=== PATIENT | female | born 1935 | race Caucasian/White ===

== ENCOUNTER 2018-08-14 23:23 | Emergency (ER) | payer OTHER ==
--- NOTE | 2018-08-15 01:12 | PDOC ---
History of Present Illness - General Chief Complaint: Constipation Stated Complaint: STOMACH PAIN Time Seen by Provider: 08/15/18 01:05 - History of Present Illness Initial Comments: 08/15/18 01:48 The patient is an 82 year old female with a history of HTN, HLD, Uterine CA, Non -hodkins Lymphoma who presents for evaluation of abdominal pain, nausea, and vomiting. The patient is accompanied by family who assists in providing the history. They report sharp epigastric abdominal pain with associated nausea and 1 episode of vomiting prompting the patient's presentation for further evaluation. She notes that her symptoms have mostly resolved on presentation to the ED without intervention. She denies similar symptoms in the past and otherwise denies fevers, chills, SOB, chest pain, or changes with urination or bowel movements. Past History - Past Medical History Allergies/Adverse Reactions: Allergies Allergy/AdvReac Type Severity Reaction Status Date / Time No Known Allergies Allergy Verified 08/15/18 01:19 Home Medications: Ambulatory Orders Metoprolol Succinate [Toprol XL -] 100 mg PO DAILY #0 tab.sr.24h 03/03/13 Pravastatin Sodium [Pravachol -] 10 mg PO HS #0 tablet 03/03/13 Levothyroxine [Synthroid -] 75 mcg PO DAILY 09/25/14 Gabapentin 600 mg PO BID 11/18/17 Fesoterodine Fumarate [Toviaz] 8 mg PO DAILY 08/15/18 Anemia: No Asthma: No Cancer: Yes (H/O UTERINE.non hodgkins lymphoma) Cardiac Disorders: No CVA: No COPD: No CHF: No DVT: No Dementia: No Diabetes: No GI Disorders: Yes (hemorrhoids) Disorders: Yes (BLADDER PROBLEM.) HTN: Yes Hypercholesterolemia: Yes Liver Disease: No Seizures: No Thyroid Disease: Yes (HYPO.) - Surgical History Abdominal Surgery: Yes Appendectomy: No Cardiac Surgery: No Cholecystectomy: No Lung Surgery: No Neurologic Surgery: No Orthopedic Surgery: Yes (large cyst removed from right thigh) - Suicide/Smoking/Psychosocial Hx Smoking Status: Yes Smoking History: Never smoked Have you smoked in the past 12 months: No Number of Cigarettes Smoked Daily: 0 If you are a former smoker, when did you quit?: 2000 Cigars Per Day: 0 'Breaking Loose' booklet given: 10/30/12 Hx Alcohol Use: No Drug/Substance Use Hx: No Substance Use Type: None Hx Substance Use Treatment: No Review of Systems - Review of Systems Comments:: 08/15/18 01:59 Constitutional: No fevers, chills, fatigue, malaise HEENT: No Rhinorrhea, nasal congestion, visual changes Cardiovascular: No chest pain, syncope, palpitations, lightheadedness Respiratory: No Cough, SOB, Hemoptysis, Gastrointestinal: Abdominal pain, Nausea, Vomiting, No Diarrhea, Melena Genitourinary: No Dysuria, Frequency, Urgency, Hesitancy, Hematuria, Flank pain Musculoskeletal: No Myalgia, arthralgia Skin: No rashes, itching, bruising, pallor Neurologic: No Headache, Dizziness, Numbness, Weakness, or Tingling Psychiatric: No Hallucinations. No SI or HI *Physical Exam - Physical Exam Comments: 08/15/18 01:59 General Appearance: Nourished. No Apparent Distress HEENT: No Pharyngeal Erythema, Tonsillar Exudate, Tonsillar Erythema Neck: No Cervical Lymphadenopathy Respiratory/Chest: Lungs Clear, Normal Breath Sounds. No Crackles, Rales, Rhonchi, Wheezing Cardiovascular: Regular Rhythm, Regular Rate. No Murmur, Gallops, Rubs Gastrointestinal/Abdominal: Normal Bowel Sounds, Soft. Mild Epigastric discomfort with palpation. No Guarding, Rebound, Musculoskeletal: No CVA Tenderness Extremity: Normal Capillary Refill Integumentary: Normal Color, Dry, Warm Neurologic: Fully Oriented, Alert, Normal Mood/Affect, Normal Response, ED Treatment Course - LABORATORY CBC & Chemistry Diagram: 08/15/18 01:50 08/15/18 01:50 Medical Decision Making - Medical Decision Making 08/15/18 02:06 The patient is an 82 year old female with a history of HTN, HLD, Uterine CA, Non -hodkins Lymphoma who presents for evaluation of abdominal pain, nausea, and vomiting. Differential includes but is not limited to: ACS, Gastritis, Pancreatitis, Infectious, Metabolic Derangement. Given the patient's history and physical exam, we will obtain a cbc, cmp, troponin, lipase, ekg, chest plain film to evaluate further. We will treat with iv fluids, zofran, pepcid and continue to monitor and reassess while here in the ED. 08/15/18 04:43 CBC, cmp, troponin, lipase are unremarkable. Chest plain film is unremarkable. The patient was reassessed and reports improvement in their symptoms. We are comfortable discharging the patient home in stable condition. Patient and family made aware of impression and plan, return precautions discussed including but not limited to worsening pain or symptoms, fevers, or signs of infection, chest pain, respiratory distress, inability to tolerate oral intake, dehydration, syncope, or neurologic changes. The patient is to follow up with PMD as recommended within 1 week, follow up information provided and the patient will call for an appointment. The patient is to take medications as instructed for duration of time and continue with supportive care, avoid triggers and precipitants. Patient is safe for outpatient follow-up. *DC/Admit/Observation/Transfer Diagnosis at time of Disposition: Abdominal pain Qualifiers: Abdominal location: unspecified location Qualified Code(s): R10.9 - Unspecified abdominal pain - Discharge Dispostion Disposition: HOME Condition at time of disposition: Stable - Referrals Referrals: Ruth Philip MD [Primary Care Provider] - - Patient Instructions Printed Discharge Instructions: DI for Abdominal Pain-Adult Additional Instructions: 1) Please follow-up with your primary care doctor in the next 2-3 days. Please call tomorrow to schedule a follow up appointment. If you cannot follow up with your doctor within 1 week please return to the Emergency Department for any urgent issues. 2) Your laboratory / imaging results were normal here in the ER. 3) If you have any worsening of symptoms or any other concerns please return to the ER immediately. Return if worsening symptoms including fevers, headache, vomiting, visual or hearing disturbances, abdominal pain, chest pain, shortness of breath, syncope, dehydration, inability to take things by mouth/vomiting, altered mental status, or worsening concerning symptoms. 4) Please continue taking your home medications as directed. - Post Discharge Activity
[2018-08-15 01:19] VITALS: BP 130/52; PULSE 61; TEMP 98.4; BMI 34.3
[2018-08-15] MEDS ORDERED: SODIUM CHLORIDE 1,000 ML IV STA (01:34)
[2018-08-15] MEDS ORDERED: ONDANSETRON 4 MG/2 ML VIAL IVPUSH ONE (01:34)
[2018-08-15] MEDS ORDERED: FAMOTIDINE 20 MG/50 ML IVPB 20 MG/50 ML MG IVPB ONE ×2 (01:34→02:09)
--- NOTE | 2018-08-15 02:04 | PDOC ---
Attending Attestation - Resident Resident Name: GerShashank - ED Attending Attestation I have performed the following: I have examined & evaluated the patient, The case was reviewed & discussed with the resident, I agree w/resident's findings & plan - HPI HPI: 08/15/18 04:52 82-year-old female with an episode of sharp abdominal pain followed and relieved by an episode of vomiting. - Physicial Exam PE: 08/15/18 04:53 Agree with resident's exam - Medical Decision Making 08/15/18 04:53 82-year-old female with an episode of abdominal pain relieved by vomiting Labs and chest x-ray were not concerning EKG shows a normal sinus rhythm On reevaluation at 4:50 AM patient is awake alert in no distress and states she feels fine and is ready to go home She is accompanied by family
[2018-08-15] MEDS ORDERED: ONDANSETRON 4 MG/2 ML VIAL ONE (02:09)
[2018-08-15 02:21] LABS: BASO % 0.3 % (0-2.0); EOS % 1.2 % (0-4.5); HEMATOCRIT 38.8 % (32.4-45.2); HEMOGLOBIN 12.5 GM/dL (10.7-15.3); LYMPH % 13.7 % (8-40); MCH 27.5 pg (25.7-33.7); MCHC 32.3 g/dl (32.0-36.0); MEAN CELL VOLUME 85.1 fl (80-96); MEAN PLT VOLUME 7.4 fl (7.5-11.1); MONO % 8.1 % (3.8-10.2); NEUT % 76.7 % (42.8-82.8); PLATELET COUNT 173 K/MM3 (134-434); RBC 4.56 M/mm3 (3.60-5.2); RDW 17.3 % (11.6-15.6); WHITE BLOOD COUNT 5.8 K/mm3 (4.0-10.0)
[2018-08-15 02:33] LABS: ALBUMIN 3.6 g/dl (3.4-5.0); ALK PHOS 79 U/L (45-117); ANION GAP 7 MMOL/L (8-16); BILIRUBIN,TOTAL 0.8 mg/dL (0.2-1); BLOOD UREA NITROGEN 31 mg/dL (7-18); CALCIUM 9.6 mg/dL (8.5-10.1); CHLORIDE 105 mmol/L (98-107); CO2 26 mmol/L (21-32); CREATININE 1.5 mg/dL (0.55-1.3); GLUCOSE,RANDOM 107 mg/dL (74-106); LIPASE 226 U/L (73-393); POTASSIUM 4.4 mmol/L (3.5-5.1); SGOT/AST 29 U/L (15-37); SGPT/ALT 26 U/L (13-61); SODIUM 139 mmol/L (136-145); TOT PROT 6.7 g/dl (6.4-8.2)
--- NOTE | 2018-08-15 17:15 | EKG ---
Test Reason : Blood Pressure : / mmHG Vent. Rate : 061 BPM Atrial Rate : 061 BPM P-R Int : 212 ms QRS Dur : 124 ms QT Int : 460 ms P-R-T Axes : 051 -59 -15 degrees QTc Int : 463 ms SINUS RHYTHM WITH SINUS ARRHYTHMIA WITH 1ST DEGREE A-V BLOCK LEFT AXIS DEVIATION RIGHT BUNDLE BRANCH BLOCK SEPTAL INFARCT , AGE UNDETERMINED ABNORMAL ECG WHEN COMPARED WITH ECG OF 18-NOV-2017 12:34, SINUS RHYTHM HAS REPLACED ATRIAL FIBRILLATION QT HAS LENGTHENED Confirmed by CANDICE MARTINEZ MD ([id number]) on 08/15/2018 5:15:18 PM Referred By: Confirmed By:CANDICE MARTINEZ MD
== END 2018-08-15 05:06 | disposition home or self-care (01) ==
LOC: JER 23:23
PROC: 3E033GC Introduction of Other Therapeutic Substance into Peripheral Vein, Percutaneous Approach (ICD-10-PCS; principal; 2018-08-14)
PROC: 3E033GC Introduction of Other Therapeutic Substance into Peripheral Vein, Percutaneous Approach (ICD-10-PCS; 2018-08-14)
DX: R10.84 Generalized abdominal pain (principal); E03.9 Hypothyroidism, unspecified; Z85.42 Personal history of malignant neoplasm of other parts of uterus; Z85.72 Personal history of non-Hodgkin lymphomas
CPT/HCPCS: 36415; 71045-TC-FY; 80053; 82550; 83690; 84484; 85025; 93005; 93010; 99283-25; J7030

== ENCOUNTER 2019-03-03 12:30 | Inpatient (IN) | payer OTHER ==
[2019-03-03 15:08] LABS: BASO % 0.5 % (0-2.0); EOS % 1.5 % (0-4.5); HEMATOCRIT 37.6 % (32.4-45.2); HEMOGLOBIN 12.2 GM/dL (10.7-15.3); LYMPH % 22.8 % (8-40); MCHC 32.5 g/dl (32.0-36.0); MEAN CELL VOLUME 86.1 fl (80-96); MEAN PLT VOLUME 7.2 fl (7.5-11.1); MONO % 9.9 % (3.8-10.2); NEUT % 65.3 % (42.8-82.8); PLATELET COUNT 173 K/MM3 (134-434); RBC 4.37 M/mm3 (3.60-5.2); RDW 16.5 % (11.6-15.6); WHITE BLOOD COUNT 4.3 K/mm3 (4.0-10.0)
[2019-03-03 15:19] LABS: INR 0.88 (0.83-1.09); PROTHROMBIN TIME (PATIENT) 10.4 SEC (9.7-13.0)
[2019-03-03 16:17] LABS: ALBUMIN 3.4 g/dl (3.4-5.0); ALK PHOS 69 U/L (45-117); ANION GAP 7 MMOL/L (8-16); BILIRUBIN,TOTAL 0.5 mg/dL (0.2-1); BLOOD UREA NITROGEN 44.4 mg/dL (7-18); CALCIUM 9.4 mg/dL (8.5-10.1); CHLORIDE 108 mmol/L (98-107); CO2 23 mmol/L (21-32); CREATININE 1.6 mg/dL (0.55-1.3); GLUCOSE,RANDOM 83 mg/dL (74-106); N-TERMINAL BNP 2269.7 pg/ml (5-450); POTASSIUM 5.6 mmol/L (3.5-5.1); SGOT/AST 28 U/L (15-37); SGPT/ALT 31 U/L (13-61); SODIUM 138 mmol/L (136-145); TOT PROT 6.5 g/dl (6.4-8.2)
--- NOTE | 2019-03-03 16:31 | PDOC ---
History of Present Illness - General Chief Complaint: Lightheaded Stated Complaint: LIGHTHEADNESS Time Seen by Provider: 03/03/19 13:25 History Source: Patient Exam Limitations: No Limitations - History of Present Illness Initial Comments: Pt is an 83 yo F, with PMH of HTN, HLD, chronic RLE lymphedema, [place] lymphoma (x2 , last 2000), and uterine CA (remission 2008), who is presenting with complaints of "feeling like passing out" and exertional SOB which has worsened over the past few days. Pt has had these symptoms "for a couple of months," and had an cardiac echo done by Dr. Aguilar last week "which was normal," and is scheduled for a cardiac stress next week. Pt states her symptoms over the past 3 days, feeling throughout the day "like it is going black in front of me". Pt does not endorse association with position changes, and has been tolerating PO intake as usual. 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 Pt denies any fevers/chills, headache, vision changes, syncope or seizures, chest pain, orthopnea/PND, palpitations, nausea/vomiting, abdominal pain, urinary symptoms, diarrhea/constipation, or leg swelling from baseline. Allergies: NKDA PCP: Dr. Ruth Philip Cards: Dr. Aguilar Onc: Dr. Schmidt Social: Pt denies any cigarette, alcohol, or drug use. Pt denies any recent travel or sick contacts. Surgical: no relevant history. Family: no relevant history. 03/03/19 18:42 Past History - Travel Traveled outside of the country in the last 30 days: No Close contact w/someone who was outside of country & ill: No - Past Medical History Allergies/Adverse Reactions: Allergies Allergy/AdvReac Type Severity Reaction Status Date / Time No Known Allergies Allergy Verified 03/03/19 12:47 Home Medications: Ambulatory Orders Metoprolol Succinate [Toprol XL -] 100 mg PO DAILY #0 tab.sr.24h 03/03/13 Pravastatin Sodium [Pravachol -] 10 mg PO HS #0 tablet 03/03/13 Levothyroxine [Synthroid -] 75 mcg PO DAILY 09/25/14 Gabapentin 600 mg PO BID 11/18/17 Fesoterodine Fumarate [Toviaz] 8 mg PO DAILY 08/15/18 Anemia: No Asthma: No Cancer: Yes (H/O UTERINE.non hodgkins lymphoma) Cardiac Disorders: No CVA: No COPD: No CHF: No DVT: No Dementia: No Diabetes: No GI Disorders: Yes (hemorrhoids) Disorders: Yes (BLADDER PROBLEM.) HTN: Yes Hypercholesterolemia: Yes Liver Disease: No Seizures: No Thyroid Disease: Yes (HYPO.) - Surgical History Abdominal Surgery: Yes Appendectomy: No Cardiac Surgery: No Cholecystectomy: No Lung Surgery: No Neurologic Surgery: No Orthopedic Surgery: Yes (large cyst removed from right thigh) - Psycho Social/Smoking Cessation Hx Smoking Status: Yes Smoking History: Never smoked Have you smoked in the past 12 months: No Number of Cigarettes Smoked Daily: 0 If you are a former smoker, when did you quit?: 2000 Cigars Per Day: 0 'Breaking Loose' booklet given: 10/30/12 Hx Alcohol Use: No Drug/Substance Use Hx: No Substance Use Type: None Hx Substance Use Treatment: No Cardiac Specific PMH - Complaint Specific PMHX Abdominal Aortic Aneurysm: No Angina: No Cardiac Arrhythmia: No Cardiac Stent: No GERD: No Myocardial Infarction: No Pacemaker: No Pulmonary Embolus: No Valvular Heart Disease: No Peripheral Vascular Disease: No Review of Systems - Review of Systems Able to Perform ROS?: Yes Is the patient limited Maltese proficient: No Constitutional: Yes: Weight Stable. No: Chills, Diaphoresis, Fever, Loss of Appetite, Malaise, Weakness HEENTM: No: Recent change in vision, Nose Congestion, Throat Pain, Throat Swelling, Difficulty Swallowing Respiratory: Yes: Shortness of Breath, SOB with Exertion. No: Cough, Orthopnea , SOB at Rest, Wheezing, Productive cough, Hemoptysis Cardiac (ROS): Yes: Edema (chronic, RLE lymphedema), Lightheadedness. No: Chest Pain, Irregular Heart Rate, Palpitations, Syncope, Chest Tightness ABD/GI: No: Constipated, Diarrhea, Nausea, Poor Appetite, Poor Fluid Intake, Vomiting : No: Burning, Dysuria, Frequency, Flank Pain, Pain, Urgency Musculoskeletal: No: Back Pain, Joint Swelling, Muscle Weakness Integumentary: No: Rash Neurological: Yes: Unsteady Gait. No: Headache, Numbness, Weakness, Ataxia, Dizziness Psychiatric: No: Sleep Pattern Change, Change in Appetite Endocrine: No: Increased Urine, Change in Weight Hematologic/Lymphatic: No: Anemia, Blood Clots, Easy Bleeding, Easy Bruising All Other Systems: Reviewed and Negative *Physical Exam - Vital Signs Last Vital Signs Temp Pulse Resp BP Pulse Ox 97.8 F 50 L 18 123/45 L 97 03/03/19 12:43 03/03/19 12:43 03/03/19 12:43 03/03/19 12:43 03/03/19 12:43 - Physical Exam Comments: HR 50, BP 123/45 (equal in both arms) pt afebrile. Pt in NAD, obese body habitus. Pt alert and oriented x3. interdisciplinary professor generally intact, muscular strength and sensation intact. Cerebellar exam WNL. No midline spinal tenderness, step-offs, or crepitus. Head normocephalic, atraumatic. Eyes PERRLA, EOMI. Oropharynx without erythema or exudates, no LAD b/l. No nasal congestion. Hearing intact. Clear heart sounds, S1/S2, no JVD. +systolic murmur +RLE pitting edema (pt states chronic) Clear lung sounds, no respiratory distress, wheezes, crackles, or accessory muscle use. No abdominal or CVA tenderness to palpation, no rebound, no guarding. Abdomen soft, non-distended, and with normoactive bowel sounds. Skin without jaundice or rash. 03/03/19 18:55 ED Treatment Course - LABORATORY CBC & Chemistry Diagram: 03/03/19 14:12 03/03/19 14:12 - ADDITIONAL ORDERS Additional order review: Laboratory Results 03/03/19 03/03/19 14:12 14:12 PT with INR 10.40 INR 0.88 Sodium 138 Potassium 5.6 H Chloride 108 H Carbon Dioxide 23 Anion Gap 7 L BUN 44.4 H Creatinine 1.6 H Est GFR (CKD-EPI)AfAm 33.70 Est GFR (CKD-EPI)NonAf 29.08 Random Glucose 83 Calcium 9.4 Total Bilirubin 0.5 AST 28 ALT 31 Alkaline Phosphatase 69 Creatine Kinase 114 Troponin I < 0.02 B-Natriuretic Peptide 2269.7 H Total Protein 6.5 Albumin 3.4 03/03/19 14:12 RBC 4.37 MCV 86.1 MCHC 32.5 RDW 16.5 H MPV 7.2 L Neutrophils % 65.3 Lymphocytes % 22.8 D Monocytes % 9.9 Eosinophils % 1.5 Basophils % 0.5 - RADIOLOGY Radiology Studies Ordered: Category Date Time Status HEAD CT WITHOUT CONTRAST [CT] Stat CT Scan 03/03/19 13:27 Completed CHEST PA & LAT [RAD] Stat Radiology 03/03/19 14:07 Completed Medical Decision Making - Medical Decision Making Pt was seen at bedside, also will be seen by attending Dr. Canela. Pt presenting with pre-syncope, exertional SOB. Pt ambulates with a cane and feels throughout the day that she may pass out or fall over. Will evaluate for CVA vs ACS vs CHF vs electrolyte abnormality. Pt does not appear to be clinically dehydration, and concern for CHF. Will continue to reassess pt and monitor for symptomatic improvement. ECG: Sinus bradycardia with 1st degree AV block, LAD, RBBB (Hr 53, KS 234, QRS 136, QTc 433). No TWIs or significant ST segment changes. No significant changes from prior ECG (prior: 08/15/2018). 03/03/19 18:56 CBC and CMP within pts baseline Trop <.02 with no new EKG changes BNP within prior visits Chest x-ray with no acute pathology or congestion CT head without acute pathology. Pt admitted to Dr. Chairez (admits for Dr. Philip) for telemetry monitoring and further cardiac work-up, as pre-syncope could be related to arrhythmia or CHF. Pt not stable on her feet, and is at risk for falls considering use of cane and pre-syncope. Not safe for d/c to home. 03/03/19 18:59 Discharge - Discharge Information Problems reviewed: Yes Clinical Impression/Diagnosis: Pre-syncope, SOB (shortness of breath) on exertion Condition: Stable - Admission Yes - Follow up/Referral Referrals: Ruth Philip MD [Primary Care Provider] - - Patient Discharge Instructions - Post Discharge Activity Work/Back to School Note: Parent(s) Back to Work Note
[2019-03-03 17:22] LABS: PLATELET ESTIMATE ADEQUATE
--- NOTE | 2019-03-03 18:30 | PDOC ---
Documentation entered by Syed Haro SCRIBE, acting as scribe for Vincenzo Canela MD. Vincenzo Canela MD: This documentation has been prepared by the Estrellita arnold Nirvannie, SCRIBE, under my direction and personally reviewed by me in its entirety. I confirm that the documentation accurately reflects all work, treatment, procedures, and medical decision making performed by me. Attending Attestation - Resident Resident Name: AlysonCristina - ED Attending Attestation I have performed the following: I have examined & evaluated the patient, The case was reviewed & discussed with the resident, I agree w/resident's findings & plan, Exceptions are as noted - HPI HPI: 03/03/19 16:09 The patient is an 83 year old female, with a significant past medical history of hypertension, hyperlipidemia, hypothyroidism, non-Hodgkin's lymphoma (s/p chemotherapy and surgery) and uterine cancer in remission, who presents to the emergency department s/p 1 week of multiple episodes of presyncope. Pt reports any time that she tries to exert herself, she becomes lightheaded and feels as though she will pass out. She has never had similar sxs before. As per patient, she was at work in the [employer] shop at which time she began to feel more lightheaded and almost fell prompting ED visit. Of note, patient is currently being worked up by her pheresis nurse, Dr. Aguilar for shortness of breath and has a stress test scheduled for next week. 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 She denies recent chest pain, syncope, or palpitations. She denies recent fevers , chills, headache or dizziness. She denies recent nausea, vomiting, diarrhea or constipation. Denies focal weakness/numbness. She denies recent dysuria, frequency, urgency or hematuria. Allergies: NKA Past surgical history: Hysterectomy. Social history: Former smoker (Quit 1999). Denies EtOH use and recreational drug use. Familial history: Offspring- PE. Primary Care Physician: Dr. Ruth Philip - Physicial Exam PE: 03/03/19 18:23 GENERAL: Awake, alert, and fully oriented, in no acute distress EYES: PERRLA, EOMI, sclera anicteric, conjunctiva clear ENT: Oropharynx clear without exudates. Moist mucosa NECK: Normal ROM, supple, no lymphadenopathy, JVD, or masses LUNGS: Breath sounds equal, clear to auscultation bilaterally. No wheezes, and no crackles HEART: Regular rate and rhythm, normal S1 and S2, no murmurs, rubs or gallops ABDOMEN: Soft, nontender, normoactive bowel sounds. No guarding, no rebound. No masses EXTREMITIES: Normal range of motion, no edema. No clubbing or cyanosis. No cords, erythema, or tenderness NEUROLOGICAL: Normal speech, cranial nerves intact, 5/5 strength in all 4 extremities, normal sensation to light touch in all 4 extremities, normal cerebellar exam, normal gait, normal reflexes and tone SKIN: Warm, Dry, normal turgor, no rashes or lesions noted. - Medical Decision Making 03/03/19 18:27 83-year-old female Presents emergency department with lightheadedness and presyncope with exertion for 1 week as well as 2 months of progressive dyspnea on exertion. Labs consistent with mild hyperkalemia to 5.6, elevated creatinine 1.6, however last creatinine in our system was 1.5. She also has an elevated BNP consistent with possible heart failure. In light of clinical history and labs, plan to admit the patient to telemetry observation for possible stress test and further management. Heart Score/ECG Review #1 03/03/19 18:23 Twelve-lead EKG was performed and reviewed by me. Sinus bradycardia, rate 53. Left axis deviation. Right bundle branch block. No ST elevations. Isolated T wave inversion in lead III.
[2019-03-03] MEDS ORDERED: ATORVASTATIN CA 10 MG TABLET (FP) PO SCH (22:00)
[2019-03-03] MEDS ORDERED: ATORVASTATIN CA 10 MG TABLET (FP) ONE (22:53)
[2019-03-03] MEDS ORDERED: GABAPENTIN 100 MG CAPSULE (FP) ONE (22:53)
[2019-03-03] MEDS: GABAPENTIN 300 MG CAPSULE (FP) PO SCH (23:06)
[2019-03-04] MEDS ORDERED: LEVOTHYROXINE NA 75 MCG TABLET (FP) PO SCH (07:00)
[2019-03-04 07:11] LABS: BASO % 0.3 % (0-2.0); EOS % 2.2 % (0-4.5); HEMATOCRIT 35.1 % (32.4-45.2); HEMOGLOBIN 11.6 GM/dL (10.7-15.3); LYMPH % 28.3 % (8-40); MCH 28.5 pg (25.7-33.7); MCHC 33.1 g/dl (32.0-36.0); MEAN CELL VOLUME 86.1 fl (80-96); MONO % 10.7 % (3.8-10.2); NEUT % 58.5 % (42.8-82.8); PLATELET COUNT 154 K/MM3 (134-434); RBC 4.07 M/mm3 (3.60-5.2); RDW 16.5 % (11.6-15.6); WHITE BLOOD COUNT 3.5 K/mm3 (4.0-10.0)
[2019-03-04 07:41] LABS: ALBUMIN 3.3 g/dl (3.4-5.0); BILIRUBIN,TOTAL 0.5 mg/dL (0.2-1); BLOOD UREA NITROGEN 37.4 mg/dL (7-18); CALCIUM 9.1 mg/dL (8.5-10.1); CREATININE 1.4 mg/dL (0.55-1.3); POTASSIUM 4.3 mmol/L (3.5-5.1); TOT PROT 5.8 g/dl (6.4-8.2)
[2019-03-04 09:33] VITALS: BMI 34.0
[2019-03-04 09:45] LABS: EPI CELLS 0.9 /HPF (0-5/HPF); HYALINE CASTS 1 /lpf (0-8); PH,URINE 5.5 (5.0-8.0); URINE APPEARANCE CLEAR; URINE BACTERIA 915.8 /hpf (NEGATIVE); URINE BILIRUBIN NEGATIVE (NEGATIVE); URINE COLOR YELLOW; URINE GLUCOSE (UA) NEGATIVE (NEGATIVE); URINE KETONE NEGATIVE (NEGATIVE); URINE LEUK ESTERASE TRACE (NEGATIVE); URINE NITRITE POSITIVE (NEGATIVE); URINE PROTEIN NEGATIVE (NEGATIVE); URINE RBC 1 /hpf (0-4); URINE UROBILINOGEN 0.2 mg/dL (0.2-1.0); URINE WBC 10 /hpf (0-5)
[2019-03-04] MEDS ORDERED: TOLTERODINE TARTRATE LA 4 MG CAP.SR.24H (FP) PO SCH (10:00)
[2019-03-04] MEDS ORDERED: hydrALAZINE HCL 25 MG TABLET (FP) PO SCH (10:00)
[2019-03-04] MEDS ORDERED: CHOLECALCIFEROL (VIT D3) 1,000 UNIT (25 MCG) TABLET PO SCH (10:00)
[2019-03-04] MEDS ORDERED: PATIENT'S OWN MEDICATION (NON-FORMULARY) (Nebivolol Hcl [Bystolic] 20 MG) PO SCH (10:00)
[2019-03-04] MEDS ORDERED: HEPARIN NA (PORCINE) 5,000 UNITS/ML 1ML VIAL SQ SCH (10:00)
[2019-03-04] MEDS ORDERED: amLODIPine BESYLATE 5 MG TABLET (FP) PO SCH (10:00)
[2019-03-04] MEDS ORDERED: VALSARTAN 160 MG TABLET (UD) PO SCH (10:00)
--- NOTE | 2019-03-04 10:01 | HP ---
Admitting History and Physical - Primary Care Physician PCP: Nathalia Chairez S - Admission Chief Complaint: dizziness lightheadedness History of Present Illness: The patient is an 83 year old female, with a significant past medical history of hypertension, hyperlipidemia, hypothyroidism, non-Hodgkin's lymphoma (s/p chemotherapy and surgery) and uterine cancer in remission, who presents to the emergency department s/p 1 week of multiple episodes of presyncope. Pt reports any time that she tries to exert herself, she becomes lightheaded and feels as though she will pass out. She has never had similar sxs before. As per patient, she was at work in the [employer] at which time she began to feel more lightheaded and almost fell prompting ED visit. 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 Aguilar for shortness of breath and has a stress test scheduled for next week. 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 She denies recent chest pain, syncope, or palpitations. She denies recent fevers , chills, headache or dizziness. She denies recent nausea, vomiting, diarrhea or constipation. Denies focal weakness/numbness. She denies recent dysuria, frequency, urgency or hematuria. - Past Medical History Cardiovascular: Yes: HTN, Pulmonary Hypertension Renal/: Yes: Renal Inusuff ...: No Heme/Onc: Yes: Other (Non Hodgkin's lymphoma, Uterine Cancer) Infectious Disease: Yes: Other (erythema right leg with leukopenia) Musculoskeletal: Yes: Osteoarthritis Endocrine: Yes: Hypothyroidism - Smoking History Smoking history: Never smoked Have you smoked in the past 12 months: No Aproximately how many cigarettes per day: 0 If you are a former smoker, when did you quit?: 1999 - Alcohol/Substance Use Hx Alcohol Use: No History of Substance Use: reports: None - Social History Usual Living Arrangement: Yes: Alone Do you think of yourself as: Straight/Heterosexual ADL: Independent History of Recent Travel: No Home Medications - Allergies Allergies/Adverse Reactions: Allergies Allergy/AdvReac Type Severity Reaction Status Date / Time No Known Allergies Allergy Verified 03/03/19 12:47 - Home Medications Home Medications: Ambulatory Orders Levothyroxine [Synthroid -] 75 mcg PO DAILY 09/25/14 Fesoterodine Fumarate [Toviaz] 8 mg PO DAILY 08/15/18 Amlodipine Besylate 2.5 mg PO DAILY 03/03/19 Cholecalciferol (Vitamin D3) [Vitamin D3] 4,000 unit PO DAILY 03/03/19 Diclofenac Sodium [Diclofenac Sodium ER] 100 mg PO DAILY 03/03/19 Hydralazine HCl 25 mg PO BID 03/03/19 Nebivolol HCl [Bystolic] 20 mg PO DAILY 03/03/19 Rosuvastatin [Crestor -] 5 mg PO HS 03/03/19 Telmisartan [Micardis] 80 mg PO DAILY 03/03/19 Family Medical History Family History: Unremarkable Review of Systems - Review of Systems Constitutional: denies: Chills, Fever, Lethargy Eyes: denies: Blind Spots, Blurred Vision, Double Vision HENT: denies: Difficult Swallowing, Ear Pain, Epistaxis Neck: denies: Decreased ROM, Stiffness Cardiovascular: reports: Shortness of Breath. denies: Chest Pain, Edema, Palpitations Respiratory: reports: Exercise Intolerance, SOB on Exertion. denies: Cough, SOB Gastrointestinal: denies: Abdominal Pain, Nausea, Vomiting Genitourinary: denies: Burning, Dysuria, Flank Pain Musculoskeletal: denies: Back Pain, Crepitus, Decreased ROM, Extremity Pain Integumentary: denies: Eczema, Pruritis, Rash, Wound Neurological: reports: Dizziness. denies: Change in LOC, Change in Speech, Confusion, Headache, Incoordination, Numbness, Parasthesia, Seizure, Syncope, Unsteady Gait, Weakness Endocrine: denies: Excessive Sweating, Flushing Hematology/Lymphatic: denies: Easily Bruised, Excessive Bleeding Psychiatric: denies: Altered Sleep Pattern, Anxiety, Depression, Suicidal Physical Examination Vital Signs: Vital Signs Temperature 98.2 F 03/04/19 09:00 Pulse Rate 57 L 03/04/19 09:00 Respiratory Rate 20 03/04/19 09:00 Blood Pressure 156/63 03/04/19 09:00 O2 Sat by Pulse Oximetry (%) 98 03/04/19 09:00 Constitutional: Yes: No Distress, Calm Eyes: Yes: Conjunctiva Clear HENT: Yes: Atraumatic Neck: Yes: Supple Cardiovascular: Yes: Bradycardia Respiratory: Yes: CTA Bilaterally Gastrointestinal: Yes: Soft. No: Tenderness Renal/: No: Hematuria Musculoskeletal: No: Joint Stiffness, Joint Swelling Extremities: Yes: Other. No: Cold, Cool Edema: No Integumentary: Yes: Venous Stasis Changes (RLE chronic). No: Rash Neurological: Yes: WNL, Alert, Oriented ...Motor Strength: WNL Psychiatric: Yes: WNL, Alert, Oriented. No: Agitated, Suicidal Ideation Labs: CBC, BMP 03/04/19 05:25 03/04/19 05:25 Imaging - Results Chest X-ray: Report Reviewed Cat Scan: Report Reviewed Other: Report Reviewed Assessment/Plan The patient is an 83 year old female, with a significant past medical history of hypertension, hyperlipidemia, hypothyroidism, non-Hodgkin's lymphoma (s/p chemotherapy and surgery) and uterine cancer in remission, who presents to the emergency department s/p 1 week of multiple episodes of presyncope. Pt reports any time that she tries to exert herself, she becomes lightheaded and feels as though she will pass out. admit to telemetry monitored unit f/u labs, CE; good po hydration; bradycardia and AVB 1st on EKG - cardiology eval echo, stress test? per cardio carotid US d/w pt and staff falls PFX
[2019-03-04] MEDS ORDERED: PT OWN MED DRAWER 7, Y5N ONE (10:19)
[2019-03-04] MEDS: GABAPENTIN 300 MG CAPSULE (FP) PO SCH ×2 (10:26→10:32)
--- NOTE | 2019-03-04 10:35 | EKG ---
Test Reason : Blood Pressure : / mmHG Vent. Rate : 053 BPM Atrial Rate : 053 BPM P-R Int : 234 ms QRS Dur : 136 ms QT Int : 462 ms P-R-T Axes : 055 -55 -01 degrees QTc Int : 433 ms SINUS BRADYCARDIA WITH 1ST DEGREE A-V BLOCK LEFT AXIS DEVIATION RIGHT BUNDLE BRANCH BLOCK ABNORMAL ECG WHEN COMPARED WITH ECG OF 15-AUG-2018 01:32, NO SIGNIFICANT CHANGE WAS FOUND Confirmed by Esteban Alonso MD ([id number]) on 03/04/2019 10:35:41 AM Referred By: Confirmed By:Esteban Alonso MD
--- NOTE | 2019-03-04 11:50 | CON.CARD ---
Cardiology Consult (text) - Consultation Consultation Note: Consult Consult Specialty:: cardio - History of Present Illness Chief Complaint: dizziness History of Present Illness: 83 F with history of HTN, HLD, chronic diastolic HF p/w dizziness. Has been going on last few days, felt worse yesterday. Has been seeing Dr. Aguilar, undergoing workup for dyspnea on exertion the last few months. She feels her dyspnea is stable, but in the last few days felt like she was going to pass out. Was admitted for similar last year in setting of dehydration. No chest pain, palps, syncope, edema. PMH: HTN HPL lymphedema chronic diast chf hypothyroidism non-Hodgkin's lymphoma (s/p chemotherapy and surgery) uterine cancer in remission mult UTI's with urosepsis/CAROLANN - Past Medical History Cardio/Vascular: Yes: HTN, Pulmonary Hypertension Renal/: Yes: Renal Inusuff Infectious Disease: Yes: Other (erythema right leg with leukopenia) Musculoskeletal: Yes: Osteoarthritis Endocrine: Yes: Hypothyroidism - Alcohol/Substance Use Hx Alcohol Use: No History of Substance Use: reports: None - Smoking History Smoking history: Never smoked Have you smoked in the past 12 months: No Aproximately how many cigarettes per day: 0 If you are a former smoker, when did you quit?: 1999 - Social History ADL: Independent History of Recent Travel: No Home Medications - Allergies Allergies/Adverse Reactions: Allergies Allergy/AdvReac Type Severity Reaction Status Date / Time No Known Allergies Allergy Verified 11/18/17 11:08 - Home Medications Home Medications: Ambulatory Orders Aspirin [Baby Aspirin] 81 mg PO DAILY 06/01/11 Acetaminophen [Tylenol .Regular Strength -] 650 mg PO Q6H PRN #0 tablet Metoprolol Succinate [Toprol XL -] 100 mg PO DAILY #0 tab.sr.24h 03/03/13 Pravastatin Sodium [Pravachol -] 10 mg PO HS #0 tablet 03/03/13 Levothyroxine [Synthroid -] 75 mcg PO DAILY 09/25/14 Tolterodine Tartrate [Detrol LA] 4 mg PO DAILY 09/25/14 Labetalol HCl 0 mg PO BID 11/28/15 Telithromycin [Ketek] 0 mg PO DAILY 11/28/15 Gabapentin 600 mg PO BID 11/18/17 Family Disease History - Family Disease History Family Disease History: CA: Sister (breast) Review of Systems - Review of Systems Constitutional: denies: Chills, Fever Eyes: denies: Eye Pain HENT: denies: Nasal Congestion Neck: denies: Stiffness Cardiovascular: denies: Palpitations Respiratory: denies: Orthopnea, PND Gastrointestinal: denies: Diarrhea, Rectal Bleeding Genitourinary: denies: Burning, Hematuria Musculoskeletal: denies: Muscle Pain Integumentary: denies: Rash Neurological: denies: Numbness, Seizure, Syncope Endocrine: denies: Excessive Sweating Hematology/Lymphatic: denies: Excessive Bleeding Vital Signs: Vital Signs Period Temp Pulse Resp BP Sys/Garibay Pulse Ox Last 24 Hr 97.8 F-98.2 F 50-57 18-20 123-176/45-69 96-98 Constitutional: Yes: Well Nourished, No Distress Eyes: No: Sclera Icterus HENT: No: Nasal Congestion Neck: No: Decreased ROM Respiratory: Yes: CTA Bilaterally. No: Accessory Muscle Use, Rales, Wheezes Gastrointestinal: Yes: Normal Bowel Sounds. No: Distention, Hepatomegaly, Palpable Mass, Tenderness Cardiovascular: Yes: Regular Rate and Rhythm JVD: No Carotid Bruit: No PMI: Non-Displaced Heart Sounds: Yes: S1, S2. No: Gallop Murmur: No: Systolic Murmur, Diastolic Murmur Musculoskeletal: Yes: Other (No kyphosis) Extremities: No: Cool, Cyanosis Edema: no Integumentary: No: Jaundice Neurological: Yes: Alert, Oriented (x3) Psychiatric: No: Agitated Laboratory Last Values WBC 3.5 K/mm3 (4.0-10.0) L 03/04/19 05:25 RBC 4.07 M/mm3 (3.60-5.2) 03/04/19 05:25 Hgb 11.6 GM/dL (10.7-15.3) 03/04/19 05:25 Hct 35.1 % (32.4-45.2) 03/04/19 05:25 MCV 86.1 fl (80-96) 03/04/19 05:25 MCH 28.5 pg (25.7-33.7) 03/04/19 05:25 MCHC 33.1 g/dl (32.0-36.0) 03/04/19 05:25 RDW 16.5 % (11.6-15.6) H 03/04/19 05:25 Plt Count 154 K/MM3 (134-434) 03/04/19 05:25 MPV 7.0 fl (7.5-11.1) L 03/04/19 05:25 Absolute Neuts (auto) 2.1 K/mm3 (1.5-8.0) 03/04/19 05:25 Total Counted 100 03/03/19 14:12 Neutrophils % 58.5 % (42.8-82.8) 03/04/19 05:25 Neutrophils % (Manual) 59.0 % (42.8-82.8) 03/03/19 14:12 Band Neutrophils % 5.0 % 03/03/19 14:12 Lymphocytes % 28.3 % (8-40) D 03/04/19 05:25 Lymphocytes % (Manual) 23.0 % (8-40) 03/03/19 14:12 Monocytes % 10.7 % (3.8-10.2) H 03/04/19 05:25 Monocytes % (Manual) 13 % (3.8-10.2) H 03/03/19 14:12 Eosinophils % 2.2 % (0-4.5) 03/04/19 05:25 Basophils % 0.3 % (0-2.0) 03/04/19 05:25 Nucleated RBC % 0 % (0-0) 03/04/19 05:25 Platelet Estimate Adequate 03/03/19 14:12 Platelet Comment No clumping noted 03/03/19 14:12 PT with INR 10.40 SEC (9.7-13.0) 03/03/19 14:12 INR 0.88 (0.83-1.09) 03/03/19 14:12 Sodium 141 mmol/L (136-145) 03/04/19 05:25 Potassium 4.3 mmol/L (3.5-5.1) 03/04/19 05:25 Chloride 110 mmol/L (98-107) H 03/04/19 05:25 Carbon Dioxide 27 mmol/L (21-32) 03/04/19 05:25 Anion Gap 4 MMOL/L (8-16) L 03/04/19 05:25 BUN 37.4 mg/dL (7-18) H 03/04/19 05:25 Creatinine 1.4 mg/dL (0.55-1.3) H 03/04/19 05:25 Est GFR (CKD-EPI)AfAm 39.61 03/04/19 05:25 Est GFR (CKD-EPI)NonAf 34.18 03/04/19 05:25 Random Glucose 76 mg/dL (74-106) 03/04/19 05:25 Calcium 9.1 mg/dL (8.5-10.1) 03/04/19 05:25 Total Bilirubin 0.5 mg/dL (0.2-1) 03/04/19 05:25 AST 16 U/L (15-37) 03/04/19 05:25 ALT 27 U/L (13-61) 03/04/19 05:25 Alkaline Phosphatase 63 U/L (45-117) 03/04/19 05:25 Creatine Kinase 64 U/L (26-192) 03/04/19 05:25 Troponin I < 0.02 ng/ml (0.00-0.05) 03/04/19 05:25 B-Natriuretic Peptide 2269.7 pg/ml (5-450) H 03/03/19 14:12 Total Protein 5.8 g/dl (6.4-8.2) L 03/04/19 05:25 Albumin 3.3 g/dl (3.4-5.0) L 03/04/19 05:25 TSH 8.70 uIU/ml (0.358-3.74) H 03/04/19 05:25 Urine Color Yellow 03/04/19 05:00 Urine Appearance Clear 03/04/19 05:00 Urine pH 5.5 (5.0-8.0) 03/04/19 05:00 Ur Specific [place] 1.014 (1.010-1.035) 03/04/19 05:00 Urine Protein Negative (NEGATIVE) 03/04/19 05:00 Urine Glucose (UA) Negative (NEGATIVE) 03/04/19 05:00 Urine Ketones Negative (NEGATIVE) 03/04/19 05:00 Urine Blood Negative (NEGATIVE) 03/04/19 05:00 Urine Nitrite Positive (NEGATIVE) H 03/04/19 05:00 Urine Bilirubin Negative (NEGATIVE) 03/04/19 05:00 Urine Urobilinogen 0.2 mg/dL (0.2-1.0) 03/04/19 05:00 Ur Leukocyte Esterase Trace (NEGATIVE) 03/04/19 05:00 Urine WBC (Auto) 10 /hpf (0-5) 03/04/19 05:00 Urine RBC (Auto) 1 /hpf (0-4) 03/04/19 05:00 Urine Casts (Auto) 1 /lpf (0-8) 03/04/19 05:00 U Epithel Cells (Auto) 0.9 /HPF (0-5/HPF) 03/04/19 05:00 Urine Bacteria (Auto) 915.8 /hpf (NEGATIVE) 03/04/19 05:00 Assessment/Plan EKG sinus princess, first deg AVB, no ischemic changes, RBBB CXR: no acute process Echo 07/25: mild LVE ,nl EF. LAP uncertain. nl RV. mild LAE. mild-mod MR/TR. mild pHTN (at least 39). L/RHC 2014: wedge 25, PA 45/26, C.I. nl (2.6). nonobstr mLAD, mRCA. nl EF tele: sinus, sinus princess echo 01/2019 nl LV/RV function, mild MR, mod TR, at least mild pulm HTN, RVSP at least 40 mmHg presyncope - monitoring on tele, no events - recent office echo unremarkable - EKG no ischemic changes, trop neg x3, unlikely ACS - carotid dopplers ordered - check orthostatics - if above unremarkable, no further cardiac workup as inpatient dyspnea on exertion - recent echo at Dr. Aguilar's office unremarkable, planned DSE next week - has been stable several months - plan to do stress test as outpatient next Sunday chronic diast CHF: - appears euvolemic, CXR clear - BNP elevated >2200, however similar to prior, weight stable - cont home meds CKD -Cr here 1.4, stable compared to prior HTN: - cont home meds, stable
[2019-03-04 14:00] VITALS: BP 124/63; PULSE 65; TEMP 98.7
--- NOTE | 2019-03-04 16:39 | DS ---
Physical Examination Vital Signs: Vital Signs Temperature 98.7 F 03/04/19 13:00 Pulse Rate 65 03/04/19 13:00 Respiratory Rate 20 03/04/19 13:00 Blood Pressure 124/63 03/04/19 13:00 O2 Sat by Pulse Oximetry (%) 98 03/04/19 09:00 Findings/Remarks: carotid US NL; pt wants to go home now UCx pending, no dysuria, pt to call us in 2 days for results d/w cardio dr [place] OK to go home f/u outpt for stress test see PE today H&P Labs: CBC, BMP 03/04/19 05:25 03/04/19 05:25 Discharge Summary Problems reviewed: Yes Reason For Visit: PRE SYNCOPE Current Active Problems Pre-syncope (Acute) SOB (shortness of breath) on exertion (Acute) Procedures: Principal: 83 YOF HTN presyncope admit to telemetry 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, 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; cardiology eval; EKG Hospital Course: stable no c/o; carotid US negative; head CT negative Plan of Treatment: cleared by cardiology to go home, f/u outpt, outpt stress test Condition: Improved - Instructions Diet, Activity, Other Instructions: f/u PCP and cardiology in 1 week RTER if worse or recurrent c/o; good po hydration; f/u pending labs from Hospital - patient to call us in 2-3 days for pending tests results Referrals: Ruth Philip MD [Primary Care Provider] - Marvin gAuilar MD [Staff Physician] - Disposition: HOME - Home Medications Comprehensive Discharge Medication List: Ambulatory Orders Fesoterodine Fumarate [Toviaz] 8 mg PO DAILY 08/15/18 Amlodipine Besylate 2.5 mg PO DAILY 03/03/19 Cholecalciferol (Vitamin D3) [Vitamin D3] 4,000 unit PO DAILY 03/03/19 Hydralazine HCl 25 mg PO BID 03/03/19 Nebivolol HCl [Bystolic] 20 mg PO DAILY 03/03/19 Rosuvastatin [Crestor -] 5 mg PO HS 03/03/19 Telmisartan [Micardis] 80 mg PO DAILY 03/03/19 Gabapentin [Neurontin -] 600 mg PO BID capsule 03/04/19 Levothyroxine [Synthroid -] 75 mcg PO DAILY@0700 tablet 03/04/19
== END 2019-03-04 17:01 | disposition home or self-care (01) | DRG 312 ==
LOC: JER 12:30 → JERBED 18:28 → J4W 03-04 04:31
PROVIDERS: ADMIT Internal Medicine; ATTEND Internal Medicine
DX: R55 Syncope and collapse (principal); C85.90 Non-Hodgkin lymphoma, unspecified, unspecified site; I50.32 Chronic diastolic (congestive) heart failure; I27.20 Pulmonary hypertension, unspecified; E03.9 Hypothyroidism, unspecified; Z85.42 Personal history of malignant neoplasm of other parts of uterus; Z87.891 Personal history of nicotine dependence; E78.5 Hyperlipidemia, unspecified; E66.9 Obesity, unspecified; I11.0 Hypertensive heart disease with heart failure; Z87.440 Personal history of urinary (tract) infections; I45.10 Unspecified right bundle-branch block; Z68.34 Body mass index [BMI] 34.0-34.9, adult
CPT/HCPCS: 36415; 70450-TC; 71046-TC-FY; 80053; 81003; 82550; 83880; 84443; 84484; 85025; 85610; 87086; 87186; 93005; 93010; 93880-TC; 99285-25; J1644

== ENCOUNTER 2020-03-17 05:35 | Day surgery (SDC) | payer OTHER ==
[2020-03-15 14:30] VITALS: BMI 34.5
[2020-03-17] MEDS ORDERED: LIDOCAINE HCL 1%, 10 MG/ML (20ML VIAL) ONE (10:08)
[2020-03-17] MEDS ORDERED: MIDAZOLAM HCL 2 MG/2 ML SINGLE DOSE VIAL ONE ×2 (10:31→11:18)
[2020-03-17] MEDS ORDERED: ceFAZolin SODIUM 1 GM VIAL ONE ×2 (11:09→11:10)
[2020-03-17] MEDS ORDERED: LIDOCAINE HCL 1%, 10 MG/ML (20ML VIAL) NR ONE (11:13)
[2020-03-17] MEDS ORDERED: BUPIVACAINE HCL/PF 0.5% (5 MG/ML) 30 ML VIAL IJ ONE (11:13)
[2020-03-17 14:27] VITALS: BP 123/56; PULSE 80; TEMP 96.6
== END 2020-03-17 14:50 | disposition home or self-care (01) ==
LOC: JASU-SURG 05:35
PROVIDERS: ATTEND Orthopaedic Surgery
PROC: 01N50ZZ Release Median Nerve, Open Approach (ICD-10-PCS; principal; 2020-03-17 10:00)
DX: G56.01 Carpal tunnel syndrome, right upper limb (principal)
CPT/HCPCS: 88304-TC; 94760

== ENCOUNTER 2021-04-03 10:10 | Emergency (ER) | payer OTHER ==
[2021-04-03 10:38] VITALS: TEMP 97.7; BMI 35.4
[2021-04-03 13:16] LABS: BASO % 0.4 % (0-2.0); EOS % 1.7 % (0-4.5); HEMATOCRIT 33.7 % (32.4-45.2); HEMOGLOBIN 11.3 GM/dL (10.7-15.3); LYMPH % 13.5 % (8-40); MCHC 33.5 g/dl (32.0-36.0); MEAN CELL VOLUME 83.5 fl (80-96); MONO % 9.4 % (3.8-10.2); PLATELET COUNT 204 10^3/uL (134-434); RBC 4.03 M/mm3 (3.60-5.2); RDW 16.2 % (11.6-15.6); WHITE BLOOD COUNT 4.8 K/mm3 (4.0-10.0)
[2021-04-03 13:23] LABS: EPI CELLS >36 /uL (0-25.1); HYALINE CASTS 5 /uL (0-3.1); URINE APPEARANCE CLOUDY; URINE BACTERIA >9,000 /uL (0-1359); URINE BILIRUBIN NEGATIVE (NEGATIVE); URINE COLOR DK YELLOW; URINE GLUCOSE (UA) NEGATIVE (NEGATIVE); URINE KETONE TRACE (NEGATIVE); URINE LEUK ESTERASE 1+ (NEGATIVE); URINE NITRITE POSITIVE (NEGATIVE); URINE PROTEIN 1+ (NEGATIVE); URINE WBC 86 /uL (0-25.8)
[2021-04-03 13:31] LABS: CALCIUM 8.9 mg/dL (8.5-10.1)
[2021-04-03 13:32] LABS: ALBUMIN 2.7 g/dl (3.4-5.0); BLOOD UREA NITROGEN 24.9 mg/dL (7-18)
[2021-04-03 13:33] LABS: INR 1.04 (0.83-1.09); PROTHROMBIN TIME (PATIENT) 12.2 SEC (9.7-13.0)
[2021-04-03 13:35] LABS: CREATININE 1.1 mg/dL (0.55-1.3)
[2021-04-03 13:36] LABS: ACTIVATED PTT 27.2 SECONDS (25.2-36.5)
[2021-04-03 13:37] LABS: BILIRUBIN,TOTAL 0.6 mg/dL (0.2-1); TOT PROT 6.2 g/dl (6.4-8.2)
[2021-04-03 13:41] LABS: N-TERMINAL BNP 1352.5 pg/ml (5-450)
[2021-04-03 14:27] LABS: URINE RBC 20.7 /uL (0-23.9)
[2021-04-03] MEDS ORDERED: CEPHALEXIN MONOHYDRATE 500 MG CAPSULE (UD) PO ONE (18:38)
[2021-04-03] MEDS ORDERED: CEPHALEXIN MONOHYDRATE 500 MG CAPSULE (UD) ONE ×2 (19:05→19:40)
[2021-04-03 19:55] VITALS: BP 149/75; PULSE 77
== END 2021-04-03 23:10 | disposition home or self-care (01) ==
LOC: JER 10:10
DX: R06.09 Other forms of dyspnea (principal); N30.01 Acute cystitis with hematuria; I11.0 Hypertensive heart disease with heart failure; I50.32 Chronic diastolic (congestive) heart failure
CPT/HCPCS: 36415; 71046-TC-FY; 71275-TC; 80053; 81003; 82550; 83880; 84484; 85025; 85610; 85730; 87086; 87186; 93308; 99285-25; C9803; Q9967; U0003; U0005

== ENCOUNTER 2021-12-18 09:35 | Emergency (ER) | payer OTHER ==
[2021-12-18 09:50] VITALS: RESP 18; BMI 36.3
[2021-12-18 11:10] LABS: BASO % 0.6 % (0-2.0); EOS % 2.4 % (0-4.5); HEMATOCRIT 39.3 % (32.4-45.2); LYMPH % 22.9 % (8-40); MCH 28.3 pg (25.7-33.7); MEAN CELL VOLUME 85.6 fl (80-96); MEAN PLT VOLUME 6.7 fl (7.5-11.1); MONO % 11.4 % (3.8-10.2); NEUT % 62.7 % (42.8-82.8); PLATELET COUNT 154 10^3/uL (134-434); RBC 4.59 M/mm3 (3.60-5.2); RDW 15.9 % (11.6-15.6)
[2021-12-18 11:13] LABS: EPI CELLS 3 /uL (0-25.1); HYALINE CASTS 0 /uL (0-3.1); PH,URINE 5.5 (5.0-8.0); URINE APPEARANCE CLEAR; URINE BACTERIA 155 /uL (0-1359); URINE BILIRUBIN NEGATIVE (NEGATIVE); URINE COLOR YELLOW; URINE GLUCOSE (UA) NEGATIVE (NEGATIVE); URINE KETONE NEGATIVE (NEGATIVE); URINE LEUK ESTERASE NEGATIVE (NEGATIVE); URINE NITRITE NEGATIVE (NEGATIVE); URINE PROTEIN NEGATIVE (NEGATIVE); URINE RBC 17 /uL (0-23.9); URINE UROBILINOGEN 0.2 mg/dL (0.2-1.0); URINE WBC 5 /uL (0-25.8)
[2021-12-18 11:35] LABS: ALBUMIN 3.5 g/dl (3.4-5.0); CALCIUM 9.4 mg/dL (8.5-10.1)
[2021-12-18 11:39] LABS: CREATININE 1.1 mg/dL (0.55-1.3)
[2021-12-18 11:40] LABS: BILIRUBIN,TOTAL 0.6 mg/dL (0.2-1); TOT PROT 6.4 g/dl (6.4-8.2)
[2021-12-18 15:29] VITALS: BP 147/69; PULSE 60; TEMP 97.9
== END 2021-12-18 15:29 | disposition home or self-care (01) ==
LOC: JER 09:35
DX: R31.9 Hematuria, unspecified (principal)
CPT/HCPCS: 36415; 74176-TC; 80053; 81003; 85025; 87086; 87186; 99284-25

== ENCOUNTER 2022-03-13 04:04 | Day surgery (SDC) | payer OTHER ==
[2022-03-10 09:43] VITALS: BMI 35.4
[~2022-03-13 04:04] MED LIST: BUPIVACAINE HCL/PF 0.5% (5 MG/ML) 30 ML VIAL IJ ONE; LIDOCAINE HCL 1%, 10 MG/ML (20ML VIAL) NR ONE
[2022-03-13] MEDS ORDERED: BUPIVACAINE HCL/PF 0.5% (5MG/ML) 10 ML VIAL ONE (07:35)
[2022-03-13] MEDS ORDERED: LIDOCAINE HCL 1%, 10 MG/ML (20ML VIAL) ONE (07:35)
[2022-03-13] MEDS ORDERED: MIDAZOLAM HCL 2 MG/2 ML SINGLE DOSE VIAL ONE (07:38)
[2022-03-13] MEDS ORDERED: FENTANYL CITRATE/PF 50 MCG/ML VIAL ONE ×2 (07:38→08:04)
[2022-03-13] MEDS ORDERED: PROPOFOL 20 ML ONE (07:38)
[2022-03-13] MEDS ORDERED: FENTANYL CITRATE/PF 50 MCG/ML VIAL IVPUSH PRN (07:46)
[2022-03-13] MEDS ORDERED: oxyCODONE HCL 5 MG TABLET PO PRN (07:46)
[2022-03-13] MEDS ORDERED: PROMETHAZINE HCL 25 MG/1 ML VIAL IVPUSH PRN (07:46)
[2022-03-13] MEDS ORDERED: ONDANSETRON 4 MG/2 ML VIAL IVPUSH PRN (07:46)
[2022-03-13] MEDS ORDERED: ACETAMINOPHEN 1000 MG/100 ML BAG IVPB ONE (07:47)
[2022-03-13] MEDS ORDERED: LACTATED RINGERS SOLUTION 1,000 ML IV SCH (08:00)
[2022-03-13] MEDS ORDERED: ceFAZolin SODIUM 1 GM VIAL IVPB ONE (08:13)
[2022-03-13] MEDS ORDERED: ceFAZolin SODIUM 1 GM VIAL ONE (08:13)
[2022-03-13] MEDS ORDERED: LIDOCAINE HCL 1%, 10 MG/ML (20ML VIAL) NR ONE ×3 (08:23→08:24)
[2022-03-13] MEDS ORDERED: BUPIVACAINE HCL/PF 0.5% (5 MG/ML) 30 ML VIAL IJ ONE ×3 (08:23→08:24)
[2022-03-13] MEDS ORDERED: ACETAMINOPHEN INJECTION 100 ML IVPB ONE (09:15)
[2022-03-13 12:21] VITALS: BP 142/86; PULSE 61; RESP 18; TEMP 96.8
== END 2022-03-13 11:25 | disposition home or self-care (01) ==
LOC: JASU-SURG 04:04
PROVIDERS: ATTEND Orthopaedic Surgery
PROC: 01N50ZZ Release Median Nerve, Open Approach (ICD-10-PCS; principal; 2022-03-13 08:00)
DX: G56.02 Carpal tunnel syndrome, left upper limb (principal)
CPT/HCPCS: 88304-TC; 94760

== ENCOUNTER 2022-07-24 23:05 | Inpatient (IN) | payer OTHER ==
[2022-07-24 23:14] VITALS: BMI 35.4
[2022-07-24 23:58] LABS: BASO % 0.6 % (0-2.0); EOS % 1.8 % (0-4.5); HEMATOCRIT 36.1 % (32.4-45.2); HEMOGLOBIN 12.2 GM/dL (10.7-15.3); LYMPH % 21.5 % (8-40); MCHC 33.8 g/dl (32.0-36.0); MEAN CELL VOLUME 82.9 fl (80-96); MEAN PLT VOLUME 6.7 fl (7.5-11.1); MONO % 10.5 % (3.8-10.2); NEUT % 65.6 % (42.8-82.8); PLATELET COUNT 165 10^3/uL (134-434); RBC 4.35 M/mm3 (3.60-5.2); RDW 15.9 % (11.6-15.6); WHITE BLOOD COUNT 6.3 K/mm3 (4.0-10.0)
[2022-07-25 00:04] LABS: PROTHROMBIN TIME (PATIENT) 11.6 SEC (9.7-13.0)
[2022-07-25 00:06] LABS: ACTIVATED PTT 30.1 SECONDS (25.2-36.5)
[2022-07-25 00:19] LABS: CALCIUM 8.7 mg/dL (8.5-10.1)
[2022-07-25 00:20] LABS: ALBUMIN 3.4 g/dl (3.4-5.0); BLOOD UREA NITROGEN 38.7 mg/dL (7-18)
[2022-07-25 00:23] LABS: CREATININE 1.6 mg/dL (0.55-1.3)
[2022-07-25 00:24] LABS: TOT PROT 6.2 g/dl (6.4-8.2)
[2022-07-25 00:25] LABS: BILIRUBIN,TOTAL 0.5 mg/dL (0.2-1)
[2022-07-25 00:28] LABS: N-TERMINAL BNP 5197.3 pg/ml (5-450)
[2022-07-25] MEDS ORDERED: ENOXAPARIN NA (PORCINE) 30 MG/0.3 ML DISP.SYRIN SQ ONE ×2 (02:55→03:07)
[2022-07-25] MEDS ORDERED: FUROSEMIDE 40 MG/4 ML INJECTABLE VIAL IVPUSH ONE (02:56)
[2022-07-25] MEDS ORDERED: FUROSEMIDE 40 MG/4 ML INJECTABLE VIAL ONE (03:07)
[2022-07-25] MEDS ORDERED: ACETAMINOPHEN 325 MG TABLET (FP) PO PRN (05:47)
[2022-07-25] MEDS: LEVOTHYROXINE NA 75 MCG TABLET (FP) PO SCH (10:04)
[2022-07-25] MEDS: HEPARIN NA (PORCINE) 5,000 UNITS/ML 1ML VIAL SQ SCH ×2 (10:04→21:22)
[2022-07-25] MEDS: ASCORBIC ACID 500 MG TABLET (FP) PO SCH (10:04)
[2022-07-25] MEDS: ASPIRIN 81 MG CHEWABLE TABLETS PO SCH (10:04)
[2022-07-25] MEDS: TOLTERODINE TARTRATE LA 4 MG CAP.SR.24H (FP) PO SCH (13:52)
[2022-07-25 16:21] LABS: URINE APPEARANCE CLEAR; URINE BILIRUBIN NEGATIVE (NEGATIVE); URINE COLOR YELLOW; URINE GLUCOSE (UA) NEGATIVE (NEGATIVE); URINE KETONE NEGATIVE (NEGATIVE); URINE LEUK ESTERASE NEGATIVE (NEGATIVE); URINE NITRITE NEGATIVE (NEGATIVE); URINE PROTEIN NEGATIVE (NEGATIVE); URINE UROBILINOGEN 0.2 mg/dL (0.2-1.0)
[2022-07-25] MEDS: ROSUVASTATIN CA 5 MG TABLET PO SCH (21:23)
[2022-07-25 22:48] VITALS: RESP 18
[2022-07-26] MEDS: LEVOTHYROXINE NA 75 MCG TABLET (FP) PO SCH (06:15)
[2022-07-26 07:44] LABS: HEMATOCRIT 34.4 % (32.4-45.2); HEMOGLOBIN 11.7 GM/dL (10.7-15.3); MEAN CELL VOLUME 82.5 fl (80-96); RBC 4.17 M/mm3 (3.60-5.2); RDW 15.5 % (11.6-15.6)
[2022-07-26 07:45] LABS: BASO % 0.3 % (0-2.0); EOS % 3.6 % (0-4.5); LYMPH % 32.4 % (8-40); MEAN PLT VOLUME 6.9 fl (7.5-11.1); MONO % 12.1 % (3.8-10.2); NEUT % 51.6 % (42.8-82.8); PLATELET COUNT 144 10^3/uL (134-434)
[2022-07-26 08:00] LABS: CALCIUM 8.8 mg/dL (8.5-10.1)
[2022-07-26 08:04] LABS: CREATININE 1.2 mg/dL (0.55-1.3)
[2022-07-26 08:05] LABS: BILIRUBIN,TOTAL 0.5 mg/dL (0.2-1); TOT PROT 5.6 g/dl (6.4-8.2)
[2022-07-26] MEDS: ASPIRIN 81 MG CHEWABLE TABLETS PO SCH (10:57)
[2022-07-26] MEDS: ASCORBIC ACID 500 MG TABLET (FP) PO SCH (10:57)
[2022-07-26] MEDS: TOLTERODINE TARTRATE LA 4 MG CAP.SR.24H (FP) PO SCH (10:57)
[2022-07-26] MEDS: HEPARIN NA (PORCINE) 5,000 UNITS/ML 1ML VIAL SQ SCH ×2 (10:57→21:32)
[2022-07-26] MEDS: CEFTRIAXONE 1 GM in DEXTROSE 5%-WATER - 50 ML IVPB SCH (10:57)
[2022-07-26] MEDS: ROSUVASTATIN CA 5 MG TABLET PO SCH (21:32)
[2022-07-27] MEDS: LEVOTHYROXINE NA 75 MCG TABLET (FP) PO SCH (06:10)
[2022-07-27 07:47] LABS: ALBUMIN 3.1 g/dl (3.4-5.0); BLOOD UREA NITROGEN 24.4 mg/dL (7-18); CALCIUM 8.9 mg/dL (8.5-10.1)
[2022-07-27 07:52] LABS: BILIRUBIN,TOTAL 0.6 mg/dL (0.2-1); CREATININE 1.1 mg/dL (0.55-1.3); TOT PROT 5.9 g/dl (6.4-8.2)
[2022-07-27] MEDS: amLODIPine BESYLATE 5 MG TABLET (FP) PO SCH (09:57)
[2022-07-27] MEDS: ASCORBIC ACID 500 MG TABLET (FP) PO SCH (09:57)
[2022-07-27] MEDS: CEFTRIAXONE 1 GM in DEXTROSE 5%-WATER - 50 ML IVPB SCH (09:57)
[2022-07-27] MEDS: ASPIRIN 81 MG CHEWABLE TABLETS PO SCH (09:57)
[2022-07-27] MEDS: TOLTERODINE TARTRATE LA 4 MG CAP.SR.24H (FP) PO SCH (09:58)
[2022-07-27] MEDS: HEPARIN NA (PORCINE) 5,000 UNITS/ML 1ML VIAL SQ SCH ×2 (09:58→21:47)
[2022-07-27 18:40] VITALS: PULSE 69
[2022-07-27] MEDS: ROSUVASTATIN CA 5 MG TABLET PO SCH (21:47)
[2022-07-28] MEDS: LEVOTHYROXINE NA 75 MCG TABLET (FP) PO SCH (06:03)
[2022-07-28 06:42] LABS: BASO % 0.4 % (0-2.0); EOS % 3.2 % (0-4.5); HEMATOCRIT 36.5 % (32.4-45.2); HEMOGLOBIN 12.4 GM/dL (10.7-15.3); LYMPH % 34.6 % (8-40); MCH 28.1 pg (25.7-33.7); MEAN CELL VOLUME 82.7 fl (80-96); MEAN PLT VOLUME 7.2 fl (7.5-11.1); MONO % 11.1 % (3.8-10.2); NEUT % 50.7 % (42.8-82.8); PLATELET COUNT 155 10^3/uL (134-434); RBC 4.42 M/mm3 (3.60-5.2); RDW 15.7 % (11.6-15.6); WHITE BLOOD COUNT 3.2 K/mm3 (4.0-10.0)
[2022-07-28 07:05] LABS: CALCIUM 9.2 mg/dL (8.5-10.1)
[2022-07-28 07:06] LABS: ALBUMIN 3.2 g/dl (3.4-5.0); BLOOD UREA NITROGEN 24.7 mg/dL (7-18)
[2022-07-28 07:09] LABS: CREATININE 1.1 mg/dL (0.55-1.3)
[2022-07-28 07:11] LABS: BILIRUBIN,TOTAL 0.9 mg/dL (0.2-1)
[2022-07-28] MEDS: ASCORBIC ACID 500 MG TABLET (FP) PO SCH (11:00)
[2022-07-28] MEDS: amLODIPine BESYLATE 5 MG TABLET (FP) PO SCH (11:00)
[2022-07-28] MEDS: HEPARIN NA (PORCINE) 5,000 UNITS/ML 1ML VIAL SQ SCH (11:00)
[2022-07-28] MEDS: ASPIRIN 81 MG CHEWABLE TABLETS PO SCH (11:00)
[2022-07-28] MEDS: CEFTRIAXONE 1 GM in DEXTROSE 5%-WATER - 50 ML IVPB SCH (11:00)
[2022-07-28] MEDS: TOLTERODINE TARTRATE LA 4 MG CAP.SR.24H (FP) PO SCH (11:00)
[2022-07-28 12:44] VITALS: BP 144/61; TEMP 97.9
== END 2022-07-28 14:22 | disposition home health service (06) | DRG 291 ==
LOC: JER 23:05 → JERBED 07-25 03:25 → J4S 07-25 06:42
PROVIDERS: ADMIT Internal Medicine; ATTEND Internal Medicine
DX: I13.0 Hypertensive heart and chronic kidney disease with heart failure and stage 1 through stage 4 chronic kidney disease, or unspecified chronic kidney disease (principal); I50.33 Acute on chronic diastolic (congestive) heart failure; C85.80 Other specified types of non-Hodgkin lymphoma, unspecified site; N17.9 Acute kidney failure, unspecified; I45.2 Bifascicular block; C25.7 Malignant neoplasm of other parts of pancreas; E03.9 Hypothyroidism, unspecified; I27.20 Pulmonary hypertension, unspecified; I35.0 Nonrheumatic aortic (valve) stenosis; I89.0 Lymphedema, not elsewhere classified; E78.5 Hyperlipidemia, unspecified; D70.9 Neutropenia, unspecified; E66.9 Obesity, unspecified; Z68.36 Body mass index [BMI] 36.0-36.9, adult; N18.9 Chronic kidney disease, unspecified; Z85.42 Personal history of malignant neoplasm of other parts of uterus
CPT/HCPCS: 0241U-QW; 36415; 71045-TC-FY; 76775-TC; 78582-TC; 80053; 81003; 82570; 83735; 83880; 84156; 84443; 84484; 85025; 85379; 85610; 85730; 87086; 87186; 93005; 93010; 93306-TC; 93970-TC; 94761; 97116-GP; 97161-GP; 99285-25; A9539; A9540; J1644

== ENCOUNTER 2022-11-10 16:29 | Inpatient (IN) | payer OTHER ==
[2022-11-10] MEDS ORDERED: AZITHROMYCIN IVPB 500 MG in DEXTROSE 5%-WATER - 250 ML IVPB ONE (18:40)
[2022-11-10 18:45] LABS: BASO % 0.3 % (0-2.0); EOS % 1.7 % (0-4.5); HEMATOCRIT 37.6 % (32.4-45.2); HEMOGLOBIN 12.6 GM/dL (10.7-15.3); LYMPH % 13.6 % (8-40); MCH 27.3 pg (25.7-33.7); MCHC 33.5 g/dl (32.0-36.0); MEAN CELL VOLUME 81.2 fl (80-96); MEAN PLT VOLUME 6.7 fl (7.5-11.1); MONO % 10.9 % (3.8-10.2); NEUT % 73.5 % (42.8-82.8); PLATELET COUNT 203 10^3/uL (134-434); RBC 4.63 M/mm3 (3.60-5.2); RDW 16.3 % (11.6-15.6); WHITE BLOOD COUNT 4.3 K/mm3 (4.0-10.0)
[2022-11-10 19:07] LABS: POTASSIUM 3.9 mmol/L (3.5-5.1)
[2022-11-10] MEDS ORDERED: cefTRIAXone SODIUM 1 GM VIAL ONE (19:08)
[2022-11-10] MEDS ORDERED: AZITHROMYCIN IVPB 500 MG/250 ML BAG IVPB ONE (19:08)
[2022-11-10 19:09] LABS: ALBUMIN 3.1 g/dl (3.4-5.0); BLOOD UREA NITROGEN 24.9 mg/dL (7-18); CALCIUM 9.1 mg/dL (8.5-10.1)
[2022-11-10 19:12] LABS: CREATININE 1.3 mg/dL (0.55-1.3)
[2022-11-10 19:14] LABS: BILIRUBIN,TOTAL 0.4 mg/dL (0.2-1); TOT PROT 6.4 g/dl (6.4-8.2)
[2022-11-10 19:29] LABS: EPI CELLS >36 /uL (0-25.1); HYALINE CASTS 7 /uL (0-3.1); URINE APPEARANCE CLOUDY; URINE BACTERIA 21 /uL (0-1359); URINE BILIRUBIN 1+ (NEGATIVE); URINE COLOR DK YELLOW; URINE GLUCOSE (UA) NEGATIVE (NEGATIVE); URINE KETONE TRACE (NEGATIVE); URINE LEUK ESTERASE NEGATIVE (NEGATIVE); URINE NITRITE NEGATIVE (NEGATIVE); URINE PROTEIN 1+ (NEGATIVE); URINE WBC 45 /uL (0-25.8)
[2022-11-10 23:31] LABS: INR 1.03 (0.83-1.09); PROTHROMBIN TIME (PATIENT) 11.9 SEC (9.7-13.0)
[2022-11-10 23:34] LABS: ACTIVATED PTT 27.6 SECONDS (25.2-36.5)
[2022-11-11 05:40] VITALS: BMI 34.9
[2022-11-11] MEDS ORDERED: ACETAMINOPHEN 325 MG TABLET (FP) PO PRN (07:31)
[2022-11-11] MEDS ORDERED: POTASSIUM CHLORIDE TABS 10 MEQ TABLET.ER (FP) PO SCH (10:00)
[2022-11-11] MEDS: CEFTRIAXONE 1 GM in DEXTROSE 5%-WATER - 50 ML IVPB SCH (10:11)
[2022-11-11] MEDS: HYDROCHLOROTHIAZIDE 25 MG TABLET (FP) PO SCH ×2 (10:11→10:14)
[2022-11-11] MEDS: ASCORBIC ACID 500 MG TABLET (FP) PO SCH (10:11)
[2022-11-11] MEDS: ASPIRIN 81 MG CHEWABLE TABLETS PO SCH (10:11)
[2022-11-11] MEDS: HEPARIN NA (PORCINE) 5,000 UNITS/ML 1ML VIAL SQ SCH ×2 (10:12→21:52)
[2022-11-11] MEDS: AZITHROMYCIN IVPB 500 MG/250 ML BAG IVPB SCH (10:12)
[2022-11-11] MEDS: TOLTERODINE TARTRATE LA 4 MG CAP.SR.24H (FP) PO SCH ×2 (10:14)
[2022-11-11] MEDS: methylPREDNISolone NA SUCC 40 MG/1 ML VIAL IVPUSH SCH (12:14)
[2022-11-11 12:17] LABS: POTASSIUM 4.5 mmol/L (3.5-5.1)
[2022-11-11 12:18] LABS: CALCIUM 8.8 mg/dL (8.5-10.1)
[2022-11-11 12:19] LABS: BLOOD UREA NITROGEN 20.9 mg/dL (7-18)
[2022-11-11 12:27] LABS: N-TERMINAL BNP 1326.6 pg/ml (5-450)
[2022-11-11] MEDS: ALBUTEROL SO4 2.5/IPRATROPIUM 0.5 INH SOL 3 ML VIAL.NEB. NEB SCH ×2 (15:00→20:11)
[2022-11-11] MEDS ORDERED: guaiFENesin 200 MG/10 ML 10 ML UNIT-DOSE CUPS PO PRN (19:23)
[2022-11-11] MEDS: ROSUVASTATIN CA 5 MG TABLET PO SCH (21:52)
[2022-11-12] MEDS: LEVOTHYROXINE NA 75 MCG TABLET (FP) PO SCH (06:20)
[2022-11-12] MEDS: ALBUTEROL SO4 2.5/IPRATROPIUM 0.5 INH SOL 3 ML VIAL.NEB. NEB SCH ×3 (08:00→19:42)
[2022-11-12] MEDS: CEFTRIAXONE 1 GM in DEXTROSE 5%-WATER - 50 ML IVPB SCH (09:38)
[2022-11-12] MEDS: AZITHROMYCIN IVPB 500 MG/250 ML BAG IVPB SCH (09:38)
[2022-11-12] MEDS: HEPARIN NA (PORCINE) 5,000 UNITS/ML 1ML VIAL SQ SCH ×2 (09:38→21:09)
[2022-11-12] MEDS: LACTOBACILLUS ACIDOPHILUS 1 TABLET PO SCH (09:39)
[2022-11-12] MEDS: amLODIPine BESYLATE 5 MG TABLET (FP) PO SCH (09:39)
[2022-11-12] MEDS: ASCORBIC ACID 500 MG TABLET (FP) PO SCH (09:39)
[2022-11-12] MEDS: FAMOTIDINE 20 MG TABLET PO SCH (09:39)
[2022-11-12] MEDS: methylPREDNISolone NA SUCC 40 MG/1 ML VIAL IVPUSH SCH (09:39)
[2022-11-12] MEDS: ASPIRIN 81 MG CHEWABLE TABLETS PO SCH (09:39)
[2022-11-12 09:50] LABS: BASO % 0.1 % (0-2.0); EOS % 0.1 % (0-4.5); HEMATOCRIT 34.7 % (32.4-45.2); HEMOGLOBIN 11.2 GM/dL (10.7-15.3); LYMPH % 14.2 % (8-40); MCH 26.6 pg (25.7-33.7); MCHC 32.2 g/dl (32.0-36.0); MEAN CELL VOLUME 82.6 fl (80-96); MEAN PLT VOLUME 7.2 fl (7.5-11.1); MONO % 7.2 % (3.8-10.2); NEUT % 78.4 % (42.8-82.8); PLATELET COUNT 233 10^3/uL (134-434); RDW 15.5 % (11.6-15.6); WHITE BLOOD COUNT 4.2 K/mm3 (4.0-10.0)
[2022-11-12 10:11] LABS: POTASSIUM 4.2 mmol/L (3.5-5.1)
[2022-11-12 10:14] LABS: CALCIUM 8.9 mg/dL (8.5-10.1)
[2022-11-12 10:15] LABS: ALBUMIN 2.9 g/dl (3.4-5.0); BLOOD UREA NITROGEN 22.3 mg/dL (7-18)
[2022-11-12 10:19] LABS: BILIRUBIN,TOTAL 0.3 mg/dL (0.2-1)
[2022-11-12 10:20] LABS: TOT PROT 6.1 g/dl (6.4-8.2)
[2022-11-12] MEDS: TOLTERODINE TARTRATE LA 4 MG CAP.SR.24H (FP) PO SCH (11:45)
[2022-11-12] MEDS: ROSUVASTATIN CA 5 MG TABLET PO SCH (21:09)
[2022-11-13] MEDS: LEVOTHYROXINE NA 75 MCG TABLET (FP) PO SCH (06:16)
[2022-11-13] MEDS: ALBUTEROL SO4 2.5/IPRATROPIUM 0.5 INH SOL 3 ML VIAL.NEB. NEB SCH ×2 (08:40→15:30)
[2022-11-13] MEDS: TOLTERODINE TARTRATE LA 4 MG CAP.SR.24H (FP) PO SCH (10:24)
[2022-11-13] MEDS: HEPARIN NA (PORCINE) 5,000 UNITS/ML 1ML VIAL SQ SCH (10:24)
[2022-11-13] MEDS: methylPREDNISolone NA SUCC 40 MG/1 ML VIAL IVPUSH SCH (10:24)
[2022-11-13] MEDS: ASPIRIN 81 MG CHEWABLE TABLETS PO SCH (10:25)
[2022-11-13] MEDS: CEFTRIAXONE 1 GM in DEXTROSE 5%-WATER - 50 ML IVPB SCH (10:25)
[2022-11-13] MEDS: amLODIPine BESYLATE 5 MG TABLET (FP) PO SCH (10:25)
[2022-11-13] MEDS: LACTOBACILLUS ACIDOPHILUS 1 TABLET PO SCH (10:25)
[2022-11-13] MEDS: ASCORBIC ACID 500 MG TABLET (FP) PO SCH (10:25)
[2022-11-13] MEDS: FAMOTIDINE 20 MG TABLET PO SCH (10:25)
[2022-11-13] MEDS: AZITHROMYCIN IVPB 500 MG/250 ML BAG IVPB SCH (10:26)
[2022-11-13 13:45] VITALS: BP 147/58; PULSE 76; RESP 18; TEMP 98.2
== END 2022-11-13 18:05 | disposition home health service (06) | DRG 194 ==
LOC: JER 16:29 → JERBED 11-11 01:36 → J7W 11-11 05:29
PROVIDERS: ADMIT Internal Medicine; ATTEND Internal Medicine
DX: J18.9 Pneumonia, unspecified organism (principal); C25.9 Malignant neoplasm of pancreas, unspecified; C85.90 Non-Hodgkin lymphoma, unspecified, unspecified site; I50.32 Chronic diastolic (congestive) heart failure; I11.0 Hypertensive heart disease with heart failure; E03.9 Hypothyroidism, unspecified; I08.3 Combined rheumatic disorders of mitral, aortic and tricuspid valves; E78.5 Hyperlipidemia, unspecified
CPT/HCPCS: 0241U-QW; 36415; 71045-TC-FY; 71275-TC; 80048; 80053; 81003; 82550; 83880; 84443; 84484; 85025; 85379; 85610; 85730; 87040; 87086; 93005; 93010; 94640; 94761; 99285-25; J1644

== ENCOUNTER 2023-03-11 16:43 | Emergency (ER) | payer OTHER ==
[2023-03-11 17:21] VITALS: RESP 18; TEMP 98.1; BMI 33.3
[2023-03-11] MEDS ORDERED: FUROSEMIDE 40 MG/4 ML INJECTABLE VIAL IVPUSH ONE (17:33)
[2023-03-11] MEDS ORDERED: ACETAMINOPHEN 1000 MG/100 ML BAG IVPB ONE (17:33)
[2023-03-11] MEDS ORDERED: FUROSEMIDE 40 MG/4 ML INJECTABLE VIAL ONE (17:46)
[2023-03-11] MEDS ORDERED: ACETAMINOPHEN INJECTION 100 ML IVPB ONE (17:46)
[2023-03-11 17:57] LABS: BASO % 0.6 % (0-2.0); EOS % 4.1 % (0-4.5); HEMOGLOBIN 12.4 GM/dL (10.7-15.3); MCH 26.9 pg (25.7-33.7); MCHC 32.8 g/dl (32.0-36.0); MEAN CELL VOLUME 82.1 fl (80-96); MEAN PLT VOLUME 6.5 fl (7.5-11.1); MONO % 12.4 % (3.8-10.2); NEUT % 59.9 % (42.8-82.8); PLATELET COUNT 186 10^3/uL (134-434); RBC 4.62 M/mm3 (3.60-5.2); RDW 15.5 % (11.6-15.6); WHITE BLOOD COUNT 3.7 K/mm3 (4.0-10.0)
[2023-03-11 18:21] LABS: POTASSIUM 4.4 mmol/L (3.5-5.1)
[2023-03-11 18:23] LABS: CALCIUM 8.7 mg/dL (8.5-10.1)
[2023-03-11 18:24] LABS: ALBUMIN 3.4 g/dl (3.4-5.0); BLOOD UREA NITROGEN 24.8 mg/dL (7-18); MAGNESIUM 2.2 mg/dL (1.8-2.4)
[2023-03-11 18:27] LABS: CREATININE 1.2 mg/dL (0.55-1.3)
[2023-03-11 18:28] LABS: BILIRUBIN,TOTAL 0.5 mg/dL (0.2-1)
[2023-03-11 18:29] LABS: TOT PROT 6.2 g/dl (6.4-8.2)
[2023-03-11 18:32] LABS: N-TERMINAL BNP 1160.9 pg/ml (5-450)
[2023-03-11 20:02] VITALS: BP 136/78; PULSE 82
== END 2023-03-11 20:16 | disposition home or self-care (01) ==
LOC: JER 16:43
PROC: 3E033NZ Introduction of Analgesics, Hypnotics, Sedatives into Peripheral Vein, Percutaneous Approach (ICD-10-PCS; principal; 2023-03-11)
PROC: 3E033GC Introduction of Other Therapeutic Substance into Peripheral Vein, Percutaneous Approach (ICD-10-PCS; 2023-03-11)
DX: I89.0 Lymphedema, not elsewhere classified (principal); R22.41 Localized swelling, mass and lump, right lower limb
CPT/HCPCS: 36415; 72170-TC-FY; 73552-TC-RT-FY; 80053; 83735; 83880; 84484; 85025; 86140; 93005; 93010; 93970-TC; 99285-25

== ENCOUNTER 2023-05-10 17:49 | Inpatient (IN) | payer OTHER ==
[~2023-05-10 17:49] MED LIST changes: -BUPIVACAINE HCL/PF 0.5% (5 MG/ML) 30 ML VIAL IJ ONE; -LIDOCAINE HCL 1%, 10 MG/ML (20ML VIAL) NR ONE; +PIPERACILLIN/TAZOB 3.375 GM 3.375 GM in DEXTROSE 5%-WATER - 50 ML IVPB SCH
[2023-05-10] MEDS ORDERED: ACETAMINOPHEN INJECTION 100 ML IVPB ONE (18:25)
[2023-05-10 18:35] LABS: VENOUS BASE EXCESS -4.6 mmol/L (-2-2); VENOUS O2 SATURATION 22.7 % (70-80); VENOUS PCO2 35.9 mmHg (38-52); VENOUS PH 7.366 (7.310-7.410)
[2023-05-10 18:36] LABS: BASO % 0.2 % (0-2.0); EOS % 0.2 % (0-4.5); HEMOGLOBIN 12.2 GM/dL (10.7-15.3); LYMPH % 20.3 % (8-40); MCH 26.8 pg (25.7-33.7); MCHC 33.1 g/dl (32.0-36.0); MONO % 14.1 % (3.8-10.2); NEUT % 65.2 % (42.8-82.8); PLATELET COUNT 184 10^3/uL (134-434); RBC 4.56 M/mm3 (3.60-5.2); RDW 16.4 % (11.6-15.6)
[2023-05-10] MEDS: SODIUM CHLORIDE 0.9% 500 ML INFUS.BAG IV ONE (18:38)
[2023-05-10] MEDS: ACETAMINOPHEN 1000 MG/100 ML BAG IVPB ONE (18:39)
[2023-05-10] MEDS ORDERED: PIPERACILLIN/TAZOB 4.5 GM 4.5 GM/100 ML BAG IVPB ONE (18:40)
[2023-05-10 18:44] LABS: INR 1.15 (0.83-1.09); PROTHROMBIN TIME (PATIENT) 13.3 SEC (9.7-13.0)
[2023-05-10 18:47] LABS: ACTIVATED PTT 28.8 SECONDS (25.2-36.5)
[2023-05-10 18:48] LABS: WHITE BLOOD COUNT 1.1 K/mm3 (4.0-10.0)
[2023-05-10] MEDS: PIPERACILLIN/TAZOB 4.5 GM 4.5 GM in DEXTROSE 5%-WATER 100 ML IVPB ONE (18:50)
[2023-05-10 19:00] LABS: POTASSIUM 4.9 mmol/L (3.5-5.1)
[2023-05-10 19:01] LABS: CALCIUM 9.3 mg/dL (8.5-10.1)
[2023-05-10 19:02] LABS: ALBUMIN 3.1 g/dl (3.4-5.0); BLOOD UREA NITROGEN 31.9 mg/dL (7-18)
[2023-05-10 19:07] LABS: BILIRUBIN,TOTAL 1.1 mg/dL (0.2-1); TOT PROT 5.9 g/dl (6.4-8.2)
[2023-05-10] MEDS ORDERED: VANCOMYCIN 1 GRAM (PRE-DOCKED) 1,000 MG/250 ML BAG IVPB ONE (19:23)
[2023-05-10] MEDS: VANCOMYCIN 1 GM PREMIX - 1 GM/200 ML BAG IVPB ONE (19:28)
[2023-05-10 19:44] LABS: LACTIC ACID 5.2 mmol/L (0.4-2.0)
[2023-05-10 20:12] LABS: ANISOCYTOSIS 1+; MACROCYTOSIS 1+; OVALOCYTE 1+
[2023-05-10] MEDS: SODIUM CHLORIDE 1,000 ML IV STA (20:41)
[2023-05-10 20:55] LABS: EPI CELLS 9 /uL (0-25.1); HYALINE CASTS 1 /uL (0-3.1); URINE APPEARANCE CLOUDY; URINE BACTERIA 7574 /uL (0-1359); URINE BILIRUBIN NEGATIVE (NEGATIVE); URINE COLOR YELLOW; URINE GLUCOSE (UA) NEGATIVE (NEGATIVE); URINE KETONE NEGATIVE (NEGATIVE); URINE LEUK ESTERASE 2+ (NEGATIVE); URINE NITRITE POSITIVE (NEGATIVE); URINE PROTEIN TRACE (NEGATIVE); URINE RBC 10 /uL (0-23.9); URINE UROBILINOGEN 0.2 mg/dL (0.2-1.0); URINE WBC 361 /uL (0-25.8)
[2023-05-10 21:28] LABS: LACTIC ACID 2.8 mmol/L (0.4-2.0)
[2023-05-10] MEDS ORDERED: NOREPINEPHRINE BITARTRATE/D5W 8 MG/250 ML BAG IVPB ONE (23:34)
[2023-05-10] MEDS: NOREPINEPHRINE 0.9 % NACL 8 MG/250 ML BAG IVPB SCH (23:49)
[2023-05-11] MEDS: PIPERACILLIN/TAZOB 3.375 GM 3.375 GM in DEXTROSE 5%-WATER - 50 ML IVPB SCH (00:50)
[2023-05-11] MEDS: VANCOMYCIN 500 MG in DEXTROSE 5%-WATER 100 ML IVPB ONE (01:58)
[2023-05-11] MEDS ORDERED: PIPERACILLIN/TAZOB 3.375 GM 3.375 GM in DEXTROSE 5%-WATER - 50 ML IVPB SCH (02:00)
[2023-05-11] MEDS: ACETAMINOPHEN 1000 MG/100 ML BAG IVPB PRN (02:01)
[2023-05-11] MEDS: PIPERACILLIN/TAZOB 2.25 GM 2.25 GM in DEXTROSE 5%-WATER 100 ML IVPB SCH (03:15)
[2023-05-11] MEDS ORDERED: PIPERACILLIN/TAZOB 2.25 GM 2.25 GM in DEXTROSE 5%-WATER - 50 ML IVPB SCH (06:00)
[2023-05-11] MEDS: LEVOTHYROXINE NA 88 MCG TABLET (FP) PO SCH (06:32)
[2023-05-11] MEDS: VASopressin 40 UNITS/100 ML BAG IV SCH (07:46)
[2023-05-11 07:51] LABS: POTASSIUM 4.6 mmol/L (3.5-5.1)
[2023-05-11 07:54] LABS: ALBUMIN 2.5 g/dl (3.4-5.0); BLOOD UREA NITROGEN 36.9 mg/dL (7-18); MAGNESIUM 1.6 mg/dL (1.8-2.4)
[2023-05-11 07:57] LABS: CREATININE 1.9 mg/dL (0.55-1.3)
[2023-05-11 07:58] LABS: TOT PROT 4.7 g/dl (6.4-8.2)
[2023-05-11 07:59] LABS: BILIRUBIN,TOTAL 0.8 mg/dL (0.2-1)
[2023-05-11 08:02] LABS: BASO % 0.2 % (0-2.0); HEMOGLOBIN 10.5 GM/dL (10.7-15.3); LYMPH % 8.2 % (8-40); MCH 26.7 pg (25.7-33.7); MCHC 32.7 g/dl (32.0-36.0); MEAN CELL VOLUME 81.5 fl (80-96); MEAN PLT VOLUME 7.1 fl (7.5-11.1); NEUT % 86.6 % (42.8-82.8); PLATELET COUNT 146 10^3/uL (134-434); RBC 3.93 M/mm3 (3.60-5.2); RDW 16.9 % (11.6-15.6); WHITE BLOOD COUNT 3.7 K/mm3 (4.0-10.0)
[2023-05-11 08:26] LABS: CALCIUM 7.6 mg/dL (8.5-10.1)
[2023-05-11] MEDS: ENOXAPARIN NA (PORCINE) 30 MG/0.3 ML DISP.SYRIN SQ SCH (09:55)
[2023-05-11] MEDS: PANTOPRAZOLE SODIUM 40 MG VIAL IVPUSH SCH (09:55)
[2023-05-11] MEDS: ASPIRIN 81 MG CHEWABLE TABLETS PO SCH (10:08)
[2023-05-11] MEDS: MUPIROCIN 2% TOPICAL OINTMENT FOR DECOLONIZATION NS SCH (10:26)
[2023-05-11] MEDS ORDERED: VANCOMYCIN/WATER FOR INJ (PEG) 1,000 MG/200 ML BAG IVPB ONE (12:00)
[2023-05-11] MEDS: LACTATED RINGERS SOLUTION 1,000 ML/1,000 ML INFUS.BAG IV SCH (13:54)
[2023-05-11] MEDS: MAGNESIUM SULFATE IN WATER 2 GM/50 ML IVPB IVPB ONE (13:54)
[2023-05-11] MEDS: PIPERACILLIN/TAZOB 2.25 GM 2.25 GM in DEXTROSE 5%-WATER - 50 ML IVPB SCH (17:07)
[2023-05-11] MEDS: CHLORHEXIDINE GLUCONATE 4% CLEANSER FOR DECOLONIZATION TP SCH (21:48)
[2023-05-11] MEDS: ROSUVASTATIN CA 5 MG TABLET PO SCH (22:59)
[2023-05-12 06:57] LABS: BASO % 0.1 % (0-2.0); EOS % 0.1 % (0-4.5); HEMATOCRIT 31.2 % (32.4-45.2); HEMOGLOBIN 10.2 GM/dL (10.7-15.3); LYMPH % 7.4 % (8-40); MCH 26.4 pg (25.7-33.7); MCHC 32.5 g/dl (32.0-36.0); MEAN CELL VOLUME 81.2 fl (80-96); MEAN PLT VOLUME 7.6 fl (7.5-11.1); MONO % 2.3 % (3.8-10.2); NEUT % 90.1 % (42.8-82.8); PLATELET COUNT 124 10^3/uL (134-434); RBC 3.84 M/mm3 (3.60-5.2); WHITE BLOOD COUNT 6.9 K/mm3 (4.0-10.0)
[2023-05-12 07:12] LABS: POTASSIUM 4.5 mmol/L (3.5-5.1)
[2023-05-12 07:18] LABS: ALBUMIN 2.1 g/dl (3.4-5.0); BLOOD UREA NITROGEN 45.1 mg/dL (7-18); CALCIUM 7.7 mg/dL (8.5-10.1)
[2023-05-12 07:19] LABS: MAGNESIUM 2.2 mg/dL (1.8-2.4)
[2023-05-12 07:21] LABS: PHOSPHOROUS 4.4 mg/dL (2.5-4.9)
[2023-05-12 07:23] LABS: BILIRUBIN,TOTAL 0.8 mg/dL (0.2-1); TOT PROT 4.7 g/dl (6.4-8.2)
[2023-05-12] MEDS ORDERED: VANCOMYCIN 1,000 MG in DEXTROSE 5%-WATER - 250 ML IVPB ONE (19:38)
[2023-05-12] MEDS: VANCOMYCIN/WATER FOR INJ (PEG) 1,000 MG/200 ML BAG IVPB ONE (20:00)
[2023-05-13 06:28] LABS: HEMATOCRIT 28.9 % (32.4-45.2); HEMOGLOBIN 9.4 GM/dL (10.7-15.3); MCH 26.4 pg (25.7-33.7); MCHC 32.5 g/dl (32.0-36.0); MEAN CELL VOLUME 81.3 fl (80-96); MEAN PLT VOLUME 7.6 fl (7.5-11.1); PLATELET COUNT 99 10^3/uL (134-434); RBC 3.56 M/mm3 (3.60-5.2); RDW 17.5 % (11.6-15.6); WHITE BLOOD COUNT 9.5 K/mm3 (4.0-10.0)
[2023-05-13 06:47] LABS: POTASSIUM 4.4 mmol/L (3.5-5.1)
[2023-05-13 06:53] LABS: ALBUMIN 1.9 g/dl (3.4-5.0); BLOOD UREA NITROGEN 49.2 mg/dL (7-18); CALCIUM 7.7 mg/dL (8.5-10.1); MAGNESIUM 2.3 mg/dL (1.8-2.4)
[2023-05-13 06:56] LABS: CREATININE 1.8 mg/dL (0.55-1.3)
[2023-05-13 06:57] LABS: BILIRUBIN,TOTAL 0.8 mg/dL (0.2-1); PHOSPHOROUS 3.9 mg/dL (2.5-4.9); TOT PROT 4.5 g/dl (6.4-8.2)
[2023-05-13] MEDS: LACTATED RINGERS SOLUTION 1,000 ML/1,000 ML INFUS.BAG IV SCH (11:59)
[2023-05-13] MEDS: POLYETHYLENE GLYCOL (HEALTHYLAX) 3350 17 GM PACKET PO PRN (17:07)
[2023-05-13] MEDS: DOCUSATE SODIUM 100 MG CAPSULE (FP) PO PRN (17:07)
[2023-05-14] MEDS ORDERED: PIPERACILLIN/TAZOBACTAM 2.25 GM VIAL IVPB ONE (04:46)
[2023-05-14 07:36] LABS: HEMATOCRIT 29.5 % (32.4-45.2); HEMOGLOBIN 9.7 GM/dL (10.7-15.3); MCH 26.3 pg (25.7-33.7); MCHC 32.7 g/dl (32.0-36.0); MEAN CELL VOLUME 80.5 fl (80-96); MEAN PLT VOLUME 7.8 fl (7.5-11.1); PLATELET COUNT 93 10^3/uL (134-434); RBC 3.67 M/mm3 (3.60-5.2); RDW 17.2 % (11.6-15.6); WHITE BLOOD COUNT 10.8 K/mm3 (4.0-10.0)
[2023-05-14 08:20] LABS: ALBUMIN 1.7 g/dl (3.4-5.0); BLOOD UREA NITROGEN 42.9 mg/dL (7-18); CALCIUM 7.6 mg/dL (8.5-10.1); MAGNESIUM 2.2 mg/dL (1.8-2.4)
[2023-05-14 08:22] LABS: CREATININE 1.5 mg/dL (0.55-1.3); PHOSPHOROUS 2.6 mg/dL (2.5-4.9)
[2023-05-14 08:24] LABS: TOT PROT 4.4 g/dl (6.4-8.2)
[2023-05-14 10:15] LABS: ANISOCYTOSIS 0; MACROCYTOSIS 0
[2023-05-14] MEDS: MIDODRINE HCL 2.5 MG TABLET PO SCH (13:53)
[2023-05-14] MEDS: CEFTRIAXONE 2 GM in DEXTROSE 5%-WATER 100 ML IVPB SCH (15:40)
[2023-05-15 07:59] LABS: POTASSIUM 3.9 mmol/L (3.5-5.1)
[2023-05-15 08:29] LABS: MCH 26.7 pg (25.7-33.7); MCHC 33.4 g/dl (32.0-36.0); PLATELET COUNT 87 10^3/uL (134-434); RBC 3.38 M/mm3 (3.60-5.2); RDW 17.1 % (11.6-15.6); WHITE BLOOD COUNT 7.7 K/mm3 (4.0-10.0)
[2023-05-15 08:37] LABS: ALBUMIN 1.5 g/dl (3.4-5.0); CALCIUM 7.7 mg/dL (8.5-10.1)
[2023-05-15 08:38] LABS: BLOOD UREA NITROGEN 34.7 mg/dL (7-18); MAGNESIUM 2.1 mg/dL (1.8-2.4)
[2023-05-15 08:42] LABS: BILIRUBIN,TOTAL 0.6 mg/dL (0.2-1); CREATININE 1.2 mg/dL (0.55-1.3); PHOSPHOROUS 2.4 mg/dL (2.5-4.9)
[2023-05-15] MEDS ORDERED: morphine CARPU-JECT 4 MG/1 ML DISP.SYRIN IVPUSH SCH (10:45)
[2023-05-15 10:54] LABS: ANISOCYTOSIS 1+; MACROCYTOSIS 0
[2023-05-15] MEDS ORDERED: morphine CARPU-JECT 4 MG/1 ML DISP.SYRIN IVPUSH PRN (11:02)
[2023-05-15] MEDS: ACETAMINOPHEN 1000 MG/100 ML BAG IVPB PRN (21:37)
[2023-05-16 07:56] LABS: HEMATOCRIT 27.4 % (32.4-45.2); HEMOGLOBIN 8.9 GM/dL (10.7-15.3); MCH 26.2 pg (25.7-33.7); MCHC 32.5 g/dl (32.0-36.0); MEAN CELL VOLUME 80.8 fl (80-96); MEAN PLT VOLUME 8.2 fl (7.5-11.1); PLATELET COUNT 99 10^3/uL (134-434); RBC 3.39 M/mm3 (3.60-5.2); RDW 17.4 % (11.6-15.6); WHITE BLOOD COUNT 8.7 K/mm3 (4.0-10.0)
[2023-05-16 08:15] LABS: POTASSIUM 4.1 mmol/L (3.5-5.1)
[2023-05-16 08:24] LABS: BLOOD UREA NITROGEN 27.6 mg/dL (7-18); CALCIUM 7.7 mg/dL (8.5-10.1)
[2023-05-16 08:25] LABS: ALBUMIN 1.5 g/dl (3.4-5.0); MAGNESIUM 1.8 mg/dL (1.8-2.4)
[2023-05-16 08:27] LABS: CREATININE 1.1 mg/dL (0.55-1.3); PHOSPHOROUS 2.6 mg/dL (2.5-4.9)
[2023-05-16 08:28] LABS: TOT PROT 4.1 g/dl (6.4-8.2)
[2023-05-16 08:29] LABS: BILIRUBIN,TOTAL 0.5 mg/dL (0.2-1)
[2023-05-16 10:06] LABS: ANISOCYTOSIS 0; MACROCYTOSIS 0
[2023-05-16] MEDS: FUROSEMIDE 40 MG/4 ML INJECTABLE VIAL IVPUSH ONE (12:05)
[2023-05-16] MEDS ORDERED: HEPARIN NA (PORCINE) 5,000 UNITS/ML 1ML VIAL SQ SCH (14:00)
[2023-05-17] MEDS: ENOXAPARIN NA (PORCINE) 40 MG/0.4 ML DISP.SYRIN SQ SCH (09:30)
[2023-05-17] MEDS: CHOLECALCIFEROL (VIT D3) 5000 UNITS (125 MCG) CAP PO SCH (09:30)
[2023-05-17] MEDS: TOLTERODINE TARTRATE LA 4 MG CAP.SR.24H (FP) PO SCH (09:30)
[2023-05-17] MEDS: ACETAMINOPHEN 1000 MG/100 ML BAG IVPB PRN (17:45)
[2023-05-17] MEDS: valACYclovir HCL 500 MG TABLET (FP) PO SCH (22:35)
[2023-05-18] MEDS: LEVOTHYROXINE NA 88 MCG TABLET (FP) PO SCH (06:14)
[2023-05-18] MEDS: ASPIRIN 81 MG CHEWABLE TABLETS PO SCH (09:25)
[2023-05-18] MEDS: FUROSEMIDE 40 MG/4 ML INJECTABLE VIAL IVPUSH ONE (17:46)
[2023-05-19 07:19] LABS: POTASSIUM 4.2 mmol/L (3.5-5.1)
[2023-05-19 07:22] LABS: ALBUMIN 1.5 g/dl (3.4-5.0); BLOOD UREA NITROGEN 20.2 mg/dL (7-18); CALCIUM 8.1 mg/dL (8.5-10.1)
[2023-05-19 07:23] LABS: BASO % 0.3 % (0-2.0); EOS % 0.6 % (0-4.5); HEMATOCRIT 25.9 % (32.4-45.2); HEMOGLOBIN 8.4 GM/dL (10.7-15.3); LYMPH % 9.6 % (8-40); MCH 26.3 pg (25.7-33.7); MCHC 32.5 g/dl (32.0-36.0); MEAN CELL VOLUME 80.9 fl (80-96); MEAN PLT VOLUME 7.7 fl (7.5-11.1); MONO % 5.8 % (3.8-10.2); NEUT % 83.7 % (42.8-82.8); PLATELET COUNT 179 10^3/uL (134-434); RBC 3.21 M/mm3 (3.60-5.2); RDW 17.3 % (11.6-15.6); WHITE BLOOD COUNT 6.2 K/mm3 (4.0-10.0)
[2023-05-19 07:26] LABS: CREATININE 0.9 mg/dL (0.55-1.3)
[2023-05-19] MEDS ORDERED: DOCUSATE SODIUM 100 MG CAPSULE (FP) PO PRN (07:26)
[2023-05-19 07:27] LABS: BILIRUBIN,TOTAL 0.3 mg/dL (0.2-1); TOT PROT 4.6 g/dl (6.4-8.2)
[2023-05-19] MEDS: VANCOMYCIN/WATER FOR INJ (PEG) 1,000 MG/200 ML BAG IVPB ONE (08:58)
[2023-05-19] MEDS: ENOXAPARIN NA (PORCINE) 40 MG/0.4 ML DISP.SYRIN SQ SCH (09:33)
[2023-05-19] MEDS: PANTOPRAZOLE SODIUM 40 MG VIAL IVPUSH SCH (09:34)
[2023-05-19] MEDS: MIDODRINE HCL 2.5 MG TABLET PO SCH (09:34)
[2023-05-19] MEDS: CEFTRIAXONE 2 GM in DEXTROSE 5%-WATER 100 ML IVPB SCH (09:34)
[2023-05-19] MEDS: TOLTERODINE TARTRATE LA 4 MG CAP.SR.24H (FP) PO SCH (11:54)
[2023-05-19] MEDS: CHOLECALCIFEROL (VIT D3) 5000 UNITS (125 MCG) CAP PO SCH (11:54)
[2023-05-19] MEDS: FUROSEMIDE 40 MG/4 ML INJECTABLE VIAL IVPUSH ONE (14:01)
[2023-05-19] MEDS: ROSUVASTATIN CA 5 MG TABLET PO SCH (21:18)
[2023-05-19] MEDS: POLYETHYLENE GLYCOL (HEALTHYLAX) 3350 17 GM PACKET PO PRN (21:20)
[2023-05-20] MEDS ORDERED: ACETAMINOPHEN 325 MG TABLET (FP) PO PRN (09:29)
[2023-05-20] MEDS ORDERED: CYANOCOBALAMIN (VITAMIN B-12) 1000 MCG/1 ML VIAL IM SCH (09:45)
[2023-05-20] MEDS: PANTOPRAZOLE 20 MG TABLET PO SCH (10:48)
[2023-05-20] MEDS: FUROSEMIDE 40 MG TABLET (FP) PO ONE (11:26)
[2023-05-21 07:14] LABS: BASO % 0.8 % (0-2.0); EOS % 0.7 % (0-4.5); HEMATOCRIT 26.7 % (32.4-45.2); HEMOGLOBIN 8.7 GM/dL (10.7-15.3); LYMPH % 12.4 % (8-40); MCH 26.3 pg (25.7-33.7); MCHC 32.6 g/dl (32.0-36.0); MEAN CELL VOLUME 80.5 fl (80-96); MEAN PLT VOLUME 7.6 fl (7.5-11.1); MONO % 7.1 % (3.8-10.2); PLATELET COUNT 247 10^3/uL (134-434); RBC 3.32 M/mm3 (3.60-5.2); RDW 16.8 % (11.6-15.6); WHITE BLOOD COUNT 6.1 K/mm3 (4.0-10.0)
[2023-05-21 07:29] LABS: CHLORIDE 104 mmol/L (98-107); POTASSIUM 4.5 mmol/L (3.5-5.1); SODIUM 138 mmol/L (136-145)
[2023-05-21 07:32] LABS: ALBUMIN 1.6 g/dl (3.4-5.0); ANION GAP 5 mmol/L (4-13); BLOOD UREA NITROGEN 23.4 mg/dL (7-18); CO2 28 mmol/L (21-32); GLUCOSE,RANDOM 99 mg/dL (74-106)
[2023-05-21 07:35] LABS: IRON SERUM 14 ug/dL (50-175); SGOT/AST 100 U/L (15-37); SGPT/ALT 83 U/L (13-61)
[2023-05-21 07:36] LABS: BILIRUBIN,TOTAL 0.3 mg/dL (0.2-1)
[2023-05-21 07:37] LABS: TOT PROT 5.2 g/dl (6.4-8.2)
[2023-05-21 08:07] LABS: ALK PHOS 198 U/L (45-117)
[2023-05-21] MEDS: FUROSEMIDE 40 MG TABLET (FP) PO ONE (15:41)
[2023-05-22 06:51] LABS: BASO % 0.6 % (0-2.0); EOS % 1.1 % (0-4.5); HEMATOCRIT 24.7 % (32.4-45.2); HEMOGLOBIN 8.1 GM/dL (10.7-15.3); LYMPH % 15.3 % (8-40); MCH 26.1 pg (25.7-33.7); MCHC 32.7 g/dl (32.0-36.0); MEAN CELL VOLUME 79.7 fl (80-96); MEAN PLT VOLUME 7.5 fl (7.5-11.1); MONO % 9.9 % (3.8-10.2); NEUT % 73.1 % (42.8-82.8); PLATELET COUNT 253 10^3/uL (134-434); WHITE BLOOD COUNT 4.7 K/mm3 (4.0-10.0)
[2023-05-22 07:11] LABS: POTASSIUM 4.4 mmol/L (3.5-5.1)
[2023-05-22 07:16] LABS: BLOOD UREA NITROGEN 22.3 mg/dL (7-18)
[2023-05-22 07:17] LABS: ALBUMIN 1.6 g/dl (3.4-5.0)
[2023-05-22 07:19] LABS: CREATININE 0.9 mg/dL (0.55-1.3)
[2023-05-22 07:21] LABS: BILIRUBIN,TOTAL 0.3 mg/dL (0.2-1); TOT PROT 5.2 g/dl (6.4-8.2)
[2023-05-22] MEDS: FERROUS SO4 325 MG TABLET (FP) PO SCH (13:09)
[2023-05-22] MEDS: FUROSEMIDE 40 MG TABLET (FP) PO ONE (13:19)
[2023-05-23] MEDS: FUROSEMIDE 40 MG TABLET (FP) PO ONE (13:31)
[2023-05-24 12:00] LABS: BASO % 0.9 % (0-2.0); EOS % 1.6 % (0-4.5); HEMATOCRIT 24.1 % (32.4-45.2); MCH 26.8 pg (25.7-33.7); MCHC 33.2 g/dl (32.0-36.0); MEAN CELL VOLUME 80.9 fl (80-96); MEAN PLT VOLUME 7.5 fl (7.5-11.1); MONO % 9.1 % (3.8-10.2); NEUT % 72.4 % (42.8-82.8); PLATELET COUNT 340 10^3/uL (134-434); RBC 2.98 M/mm3 (3.60-5.2); RDW 16.9 % (11.6-15.6); WHITE BLOOD COUNT 4.3 K/mm3 (4.0-10.0)
[2023-05-24 12:06] LABS: INR 1.21 (0.83-1.09)
[2023-05-24 12:22] LABS: POTASSIUM 4.1 mmol/L (3.5-5.1)
[2023-05-24 12:24] LABS: ALBUMIN 1.7 g/dl (3.4-5.0); BLOOD UREA NITROGEN 18.3 mg/dL (7-18); CALCIUM 8.1 mg/dL (8.5-10.1)
[2023-05-24 12:29] LABS: BILIRUBIN,TOTAL 0.2 mg/dL (0.2-1); TOT PROT 5.5 g/dl (6.4-8.2)
[2023-05-24] MEDS: FUROSEMIDE 40 MG TABLET (FP) PO ONE (16:19)
[2023-05-24] MEDS: POLYETHYLENE GLYCOL (HEALTHYLAX) 3350 17 GM PACKET PO SCH (17:13)
[2023-05-25 07:18] LABS: BASO % 0.7 % (0-2.0); EOS % 1.3 % (0-4.5); HEMATOCRIT 24.5 % (32.4-45.2); LYMPH % 15.7 % (8-40); MCH 25.9 pg (25.7-33.7); MCHC 32.5 g/dl (32.0-36.0); MEAN CELL VOLUME 79.9 fl (80-96); MEAN PLT VOLUME 7.1 fl (7.5-11.1); MONO % 9.9 % (3.8-10.2); NEUT % 72.4 % (42.8-82.8); PLATELET COUNT 346 10^3/uL (134-434); RBC 3.07 M/mm3 (3.60-5.2); RDW 16.4 % (11.6-15.6); WHITE BLOOD COUNT 4.4 K/mm3 (4.0-10.0)
[2023-05-25 08:18] LABS: POTASSIUM 4.3 mmol/L (3.5-5.1)
[2023-05-25 08:36] LABS: ALBUMIN 1.8 g/dl (3.4-5.0); BLOOD UREA NITROGEN 18.5 mg/dL (7-18); CALCIUM 8.2 mg/dL (8.5-10.1)
[2023-05-25 08:40] LABS: TOT PROT 5.4 g/dl (6.4-8.2)
[2023-05-25 08:41] LABS: BILIRUBIN,TOTAL 0.3 mg/dL (0.2-1)
[2023-05-26] MEDS: ACETAMINOPHEN 325 MG TABLET (FP) PO PRN (02:30)
[2023-05-26 08:14] LABS: BASO % 0.7 % (0-2.0); EOS % 1.3 % (0-4.5); HEMATOCRIT 25.5 % (32.4-45.2); HEMOGLOBIN 8.3 GM/dL (10.7-15.3); LYMPH % 15.2 % (8-40); MCH 26.1 pg (25.7-33.7); MCHC 32.7 g/dl (32.0-36.0); MONO % 13.5 % (3.8-10.2); NEUT % 69.3 % (42.8-82.8); PLATELET COUNT 351 10^3/uL (134-434); RBC 3.18 M/mm3 (3.60-5.2); RDW 16.7 % (11.6-15.6)
[2023-05-26 08:27] LABS: POTASSIUM 4.1 mmol/L (3.5-5.1)
[2023-05-26 08:40] LABS: ALBUMIN 1.7 g/dl (3.4-5.0); CALCIUM 8.3 mg/dL (8.5-10.1)
[2023-05-26 08:41] LABS: BLOOD UREA NITROGEN 19.3 mg/dL (7-18)
[2023-05-26 08:45] LABS: BILIRUBIN,TOTAL 0.4 mg/dL (0.2-1); TOT PROT 5.5 g/dl (6.4-8.2)
[2023-05-26] MEDS: HYDROCHLOROTHIAZIDE 12.5 MG CAPSULE (FP) PO SCH (11:16)
[2023-05-26] MEDS: LIDOCAINE 4% PATCH TP SCH (11:19)
[2023-05-27] MEDS: LIDOCAINE PATCH REMOVAL MC SCH (06:25)
[2023-05-27 08:05] LABS: MCH 26.1 pg (25.7-33.7); MCHC 32.3 g/dl (32.0-36.0); MEAN CELL VOLUME 80.9 fl (80-96); PLATELET COUNT 407 10^3/uL (134-434); RBC 3.46 M/mm3 (3.60-5.2); RDW 16.9 % (11.6-15.6); WHITE BLOOD COUNT 4.8 K/mm3 (4.0-10.0)
[2023-05-27 08:19] LABS: POTASSIUM 4.4 mmol/L (3.5-5.1)
[2023-05-27 08:21] LABS: CALCIUM 8.1 mg/dL (8.5-10.1)
[2023-05-27 08:22] LABS: ALBUMIN 1.8 g/dl (3.4-5.0); BLOOD UREA NITROGEN 19.9 mg/dL (7-18)
[2023-05-27 08:26] LABS: TOT PROT 5.6 g/dl (6.4-8.2)
[2023-05-27 08:27] LABS: BILIRUBIN,TOTAL 0.4 mg/dL (0.2-1)
[2023-05-27 09:00] LABS: PH,URINE 7.5 (5.0-8.0); URINE APPEARANCE CLEAR; URINE BILIRUBIN NEGATIVE (NEGATIVE); URINE COLOR YELLOW; URINE GLUCOSE (UA) NEGATIVE (NEGATIVE); URINE KETONE NEGATIVE (NEGATIVE); URINE LEUK ESTERASE NEGATIVE (NEGATIVE); URINE NITRITE NEGATIVE (NEGATIVE); URINE PROTEIN NEGATIVE (NEGATIVE)
[2023-05-27 10:01] LABS: ANISOCYTOSIS 0; HELMET CELLS 0; HOWELL-JOLLY BODIES 0; MACROCYTOSIS 0; OVALOCYTE 0; ROULEAU 0; SICKELED CELLS 0; TARGET CELLS 0; TEAR DROP CELLS 0; TOXIC GRANULATION 0
[2023-05-28] MEDS: ENOXAPARIN NA (PORCINE) 40 MG/0.4 ML DISP.SYRIN SQ SCH (17:53)
[2023-05-29 06:58] LABS: HEMOGLOBIN 8.7 GM/dL (10.7-15.3); MCH 26.2 pg (25.7-33.7); MCHC 32.2 g/dl (32.0-36.0); MEAN CELL VOLUME 81.4 fl (80-96); MEAN PLT VOLUME 6.7 fl (7.5-11.1); PLATELET COUNT 440 10^3/uL (134-434); RBC 3.32 M/mm3 (3.60-5.2); RDW 17.4 % (11.6-15.6); WHITE BLOOD COUNT 4.5 K/mm3 (4.0-10.0)
[2023-05-29 07:16] LABS: POTASSIUM 4.3 mmol/L (3.5-5.1)
[2023-05-29 07:28] LABS: ALBUMIN 1.8 g/dl (3.4-5.0); BLOOD UREA NITROGEN 20.8 mg/dL (7-18); CALCIUM 8.8 mg/dL (8.5-10.1)
[2023-05-29 07:33] LABS: BILIRUBIN,TOTAL 0.4 mg/dL (0.2-1); TOT PROT 5.8 g/dl (6.4-8.2)
[2023-05-29] MEDS: HYDROCHLOROTHIAZIDE 25 MG TABLET (FP) PO SCH (10:04)
[2023-05-29 11:53] LABS: ANISOCYTOSIS 1+
[2023-05-29] MEDS: COLLAGENASE CLOSTRIDIUM HIST. 30 GRAMS TUBE TP SCH (12:23)
[2023-05-31] MEDS: CEFAZOLIN 1 GM in DEXTROSE 5%-WATER - 50 ML IVPB SCH (17:24)
[2023-05-31 22:12] VITALS: BMI 38.0
[2023-06-02 07:40] LABS: HEMATOCRIT 26.2 % (32.4-45.2); HEMOGLOBIN 8.8 GM/dL (10.7-15.3); MCHC 33.5 g/dl (32.0-36.0); MEAN CELL VOLUME 80.4 fl (80-96); MEAN PLT VOLUME 6.4 fl (7.5-11.1); PLATELET COUNT 478 10^3/uL (134-434); RBC 3.26 M/mm3 (3.60-5.2); RDW 17.1 % (11.6-15.6); WHITE BLOOD COUNT 4.9 K/mm3 (4.0-10.0)
[2023-06-02 07:53] LABS: POTASSIUM 4.4 mmol/L (3.5-5.1)
[2023-06-02 08:00] LABS: ALBUMIN 1.8 g/dl (3.4-5.0); BLOOD UREA NITROGEN 17.9 mg/dL (7-18); CALCIUM 8.8 mg/dL (8.5-10.1)
[2023-06-02 08:04] LABS: CREATININE 0.9 mg/dL (0.55-1.3)
[2023-06-02 08:05] LABS: BILIRUBIN,TOTAL 0.3 mg/dL (0.2-1); TOT PROT 5.4 g/dl (6.4-8.2)
[2023-06-02 09:03] LABS: ANISOCYTOSIS 0; MACROCYTOSIS 0
[2023-06-03] MEDS: COLLAGENASE CLOSTRIDIUM HIST. 30 GRAMS TUBE TP SCH (14:45)
[2023-06-03 18:41] VITALS: RESP 18
[2023-06-04 20:03] VITALS: TEMP 98.2
[2023-06-05 06:08] VITALS: BP 160/62; PULSE 80
== END 2023-06-05 13:15 | DRG 853 ==
LOC: JER 17:49 → JERBED 22:01 → JICU 05-11 03:01 → J7W 05-14 17:39 → JICU 05-14 17:49 → J4W 05-19 04:41
PROVIDERS: ADMIT Internal Medicine; ATTEND Internal Medicine
PROC: 0JBQ0ZZ Excision of Right Foot Subcutaneous Tissue and Fascia, Open Approach (ICD-10-PCS; principal; 2023-05-31)
DX: A40.9 Streptococcal sepsis, unspecified (principal); I50.43 Acute on chronic combined systolic (congestive) and diastolic (congestive) heart failure; J18.9 Pneumonia, unspecified organism; R65.21 Severe sepsis with septic shock; J80 Acute respiratory distress syndrome; C85.90 Non-Hodgkin lymphoma, unspecified, unspecified site; C25.9 Malignant neoplasm of pancreas, unspecified; N17.9 Acute kidney failure, unspecified; N39.0 Urinary tract infection, site not specified; L03.115 Cellulitis of right lower limb; I13.0 Hypertensive heart and chronic kidney disease with heart failure and stage 1 through stage 4 chronic kidney disease, or unspecified chronic kidney disease; M62.82 Rhabdomyolysis; E87.20 Acidosis, unspecified; E03.9 Hypothyroidism, unspecified; E78.5 Hyperlipidemia, unspecified; I95.9 Hypotension, unspecified; E87.70 Fluid overload, unspecified; D69.6 Thrombocytopenia, unspecified; E66.9 Obesity, unspecified; Z68.38 Body mass index [BMI] 38.0-38.9, adult; D72.819 Decreased white blood cell count, unspecified
CPT/HCPCS: 0241U-QW; 36415; 71045-TC-FY; 73610-TC-RT-FY; 73630-TC-RT-FY; 76705-TC; 80053; 81003; 82248; 82550; 82553; 82607; 82728; 82803; 82962; 82977; 83516; 83540; 83550; 83605; 83735; 83880; 84100; 84439; 84443; 84484; 85025; 85027; 85610; 85730; 86038; 86704; 86803; 86850; 86900; 86901; 87040; 87086; 87186; 87340; 87517; 87522; 87635; 93005; 93010; 93306-TC; 93926-TC; 93970-TC; 97116-GP; 97162-GP; 99285-25; G0480; J0131; J3490